=== PATIENT | female | born 1945 | race Caucasian/White ===

== ENCOUNTER 2017-03-10 08:52 | Inpatient (IN) ==
--- NOTE | 2017-03-09 11:31 | Discharge Summary ---
<Alma De Leon E - Last Filed: 03/09/17 11:29> Date of Encounter: 03/09/17 - Discharge Diagnosis (1) Rotator cuff arthropathy Status: Acute Qualifiers: Laterality: left Qualified Code(s): M12.812 - Other specific arthropathies , not elsewhere classified, left shoulder (2) COPD (chronic obstructive pulmonary disease) Priority: Secondary Status: Acute Qualifiers: COPD type: unspecified COPD Qualified Code(s): J44.9 - Chronic obstructive pulmonary disease, unspecified (3) Peritoneal dialysis status Priority: Secondary Status: Acute (4) Diabetes mellitus type 2, insulin dependent Priority: Secondary Status: Acute (5) Hypertension Priority: Secondary Status: Acute Qualifiers: Hypertension type: essential hypertension Qualified Code(s): I10 - Essential (primary) hypertension (6) Hyperlipidemia Priority: Secondary Status: Acute Qualifiers: Hyperlipidemia type: unspecified Qualified Code(s): E78.5 - Hyperlipidemia , unspecified (7) Hypothyroidism Priority: Secondary Status: Acute Qualifiers: Hypothyroidism type: unspecified Qualified Code(s): E03.9 - Hypothyroidism , unspecified (8) Obesity, Class III, BMI 40-49.9 (morbid obesity) Priority: Secondary Status: Acute (9) GERD (gastroesophageal reflux disease) Priority: Secondary Status: Acute Qualifiers: Esophagitis presence: esophagitis presence not specified Qualified Code(s) : K21.9 - Gastro-esophageal reflux disease without esophagitis - Discharge Medications Home Medications: B Complex W-C No.20/Folic Acid [Nephrocaps Softgel] 1 mg PO DAILY 08/30/15 [ History] Bumetanide [Bumex] 2 mg PO DAILY 08/30/15 [History] Calcium Acetate [Phos-LO] 667 mg PO DAILY 08/30/15 [History] Ferrous Sulfate 325 mg PO DAILY 08/30/15 [History] Gabapentin [Neurontin] 300 mg PO BID 08/30/15 [History] Insulin ASPART [NovoLOG] 30 unit SQ TIDWM 08/30/15 [History] Isosorbide MONOnitrate (24 HR) [Imdur] 60 mg PO DAILY 08/30/15 [History] Levothyroxine [Synthroid] 50 mcg PO DAILY 08/30/15 [History] Montelukast [Singulair] 10 mg PO DAILY 08/30/15 [History] Nitroglycerin 0.4 mg SL Q5MIN PRN 08/30/15 [History] OxyCODONE Immed Rel [Roxicodone 5 MG] 5 - 10 mg PO Q6HR PRN #40 tablet 03/09/17 [Rx] Albuterol Neb [Proventil Neb] 2.5 mg IH Q4HR PRN 03/10/17 [History] Amlodipine [Norvasc] 5 mg PO DAILY 03/10/17 [History] Calcitriol [Rocaltrol] 0.25 mcg PO DAILY 03/10/17 [History] Carvedilol [Coreg] 25 mg PO BID 03/10/17 [History] Cholecalciferol (Vitamin D3) [Vitamin D] 50,000 unit PO OLIVEIRA 03/10/17 [History] Hydralazine HCl 50 mg PO TID 03/10/17 [History] Insulin DETEMIR [Levemir] 50 unit SQ HS 03/10/17 [History] Irbesartan [Avapro] 300 mg PO DAILY 03/10/17 [History] Lansoprazole [Prevacid] 30 mg PO DAILY 03/10/17 [History] Metolazone [Zaroxolyn] 2.5 mg PO DAILY 03/10/17 [History] OxyCODONE/APAP 5/325 [Percocet 5/325] 1 each PO Q6HR PRN 03/10/17 [History] Simvastatin [Zocor] 20 mg PO HS 03/10/17 [History] Tizanidine HCl 2 mg PO BID PRN 03/10/17 [History] Tramadol HCl [Ultram] 50 mg PO Q6H PRN 03/10/17 [History] Allergies/Adverse Reactions: Allergies acetaminophen [From Darvocet-N] Adverse Reaction (Verified 03/10/17 09:54) Nausea adhesive tape Adverse Reaction (Verified 03/10/17 09:54) Rash aspirin Adverse Reaction (Verified 03/10/17 09:54) Nausea meperidine [From Demerol] Adverse Reaction (Verified 03/10/17 09:54) Dizziness propoxyphene [From Darvocet-N] Adverse Reaction (Verified 03/10/17 09:54) Nausea Sulfa (Sulfonamide Antibiotics) Adverse Reaction (Verified 03/10/17 09:54) Denises Primary care physician: Jennifer Wynn CNP - Patient Status Disposition: Home, Self-Care Condition: Good - Discharge Instructions Follow Up With: Jennifer Wynn CNP [Primary Care Provider] - (Web requested 03-11-17) - Hospital Course Hospital course: Ms. Bardales is a 72 year old female - Time Spent with Patient Total time spent providing and/or coordinating discharge services: <Garret Caro - Last Filed: 03/11/17 08:51> Date of Encounter: 03/11/17 Time of Encounter: 08:50 - Discharge Diagnosis (1) Rotator cuff arthropathy Priority: Primary Status: Acute Qualifiers: Laterality: left Qualified Code(s): M12.812 - Other specific arthropathies , not elsewhere classified, left shoulder (2) COPD (chronic obstructive pulmonary disease) Priority: Secondary Status: Chronic Qualifiers: COPD type: unspecified COPD Qualified Code(s): J44.9 - Chronic obstructive pulmonary disease, unspecified (3) Peritoneal dialysis status Priority: Secondary Status: Chronic (4) Diabetes mellitus type 2, insulin dependent Priority: Secondary Status: Chronic (5) Hypertension Priority: Secondary Status: Chronic Qualifiers: Hypertension type: essential hypertension Qualified Code(s): I10 - Essential (primary) hypertension (6) Hyperlipidemia Priority: Secondary Status: Chronic Qualifiers: Hyperlipidemia type: unspecified Qualified Code(s): E78.5 - Hyperlipidemia , unspecified (7) Hypothyroidism Priority: Secondary Status: Chronic Qualifiers: Hypothyroidism type: unspecified Qualified Code(s): E03.9 - Hypothyroidism , unspecified (8) Obesity, Class III, BMI 40-49.9 (morbid obesity) Priority: Secondary Status: Chronic (9) GERD (gastroesophageal reflux disease) Priority: Secondary Status: Chronic Qualifiers: Esophagitis presence: esophagitis presence not specified Qualified Code(s) : K21.9 - Gastro-esophageal reflux disease without esophagitis Primary care physician: Jennifer Wynn CNP - Patient Status Overall status at discharge: patient is progressing back to baseline - Hospital Course Hospital course: Ms. Bardales is a 72 year old female The patient had an uneventful postoperative course. They received antibiotics and physical therapy and were discharged in stable condition. There will follow -up in the office in 2 weeks. , Patient received dialysis prior following her surgery. - Time Spent with Patient Total time spent providing and/or coordinating discharge services:
--- NOTE | 2017-03-10 08:55 | History & Physical Report ---
Date of Encounter: 03/10/17 Time of Encounter: 08:55 24 Hour HP Update - Instructions Instructions: If the History and Physical is less than 30 days old and was completed prior to A.M. admission and or procedure and has NOT been updated on calendar day of procedure please complete this update prior to performing procedure. - Update Patient reports changes in Medical Condition: No Changes in examination, assessment, or condition: No Changes in Medication: No Preop tests/diagnostics Reviewed: Yes Surgery Remains Indicated: Yes Consent for Planned Operative Procedure(s) Verified: Yes - Pre-Operative Checklist Preoperative Checklist Indicated: No Prophylactic Antibiotic Ordered: Yes Is VTE Prophylaxis Indicated?: Yes
[2017-03-10] MEDS ORDERED: ROPIVACAINE HCL/PF 0.5% 30 ML VIAL ONE (09:05)
[2017-03-10] MEDS ORDERED: Bupivacaine/Clonidine Syringe 1 EACH SYRINGE ONE (09:06)
[2017-03-10] MEDS ORDERED: *HR* Propofol 200 MG/20 ML VIAL IVP ONE ×2 (09:27→10:26)
[2017-03-10] MEDS ORDERED: *HR* FentaNYL (PF) 100 MCG/2 ML VIAL ONE ×2 (09:27→11:15)
[2017-03-10] MEDS ORDERED: *HR* Midazolam HCl 2 MG/2 ML VIAL ONE (09:27)
[2017-03-10] MEDS ORDERED: Lidocaine -MPF 2% 2 ML VIAL ONE (09:28)
[2017-03-10] MEDS ORDERED: *HR* Succinylcholine 200 MG/10 ML VIAL IVP ONE (09:29)
--- NOTE | 2017-03-10 09:34 | Anesthesia Evaluation PreOp ---
Date of Encounter: 03/10/17 Time of Encounter: 09:32 - Past History Planned Operation: Left Total Shoulder Replacement Cardiac History: AR, CHF, HTN, Hyperlipidemia Pulmonary History: Former smoker (quit 52 years ago, smoked for 5 years), COPD ( O2 qhs), MORGAN Dx COUNTY AGENT History: Denies Any Significant HX Other Medical History: Renal (CKD stage 4, peritoneal dialysis qhs), Diabetes Type II, Thyroid, GERD, Other (H/O breast CA S/P bilateral mastectomy S/P chemo) Anesthesia History: No Prior Anesthetic Complications, Past Anesthesia (HUBERT) Alcohol Use: none Drug use: none Medications and Allergies B Complex W-C No.20/Folic Acid [Nephrocaps Softgel] 1 mg PO DAILY 08/30/15 [ History] Bumetanide [Bumex] 2 mg PO BID 08/30/15 [History] Calcium Acetate [Phos-LO] 1,334 mg PO TID 08/30/15 [History] Carvedilol 3.125 mg PO HS 08/30/15 [History] Carvedilol [Coreg] 3.125 mg PO BID 08/30/15 [History] Cholecalciferol (Vitamin D3) [Vitamin D] 5,000 unit PO DAILY 08/30/15 [History] Docusate [Colace] 100 mg PO BID 08/30/15 [History] Ferrous Sulfate 325 mg PO TIDWM 08/30/15 [History] Gabapentin [Neurontin] 300 mg PO BID 08/30/15 [History] Insulin ASPART [NovoLOG] 0 unit SQ TIDWM 08/30/15 [History] Insulin Glargine,Hum.rec.anlog [Lantus Solostar] 18 unit SQ HS 08/30/15 [History ] Ipratropium/Albuterol Neb [Duoneb] 3 ml IH Q4HR PRN 08/30/15 [History] Isosorbide MONOnitrate (24 HR) [Imdur] 30 mg PO DAILY 08/30/15 [History] Levothyroxine [Synthroid] 50 mcg PO DAILY 08/30/15 [History] Loratadine [Claritin] 10 mg PO DAILY 08/30/15 [History] Metolazone [Zaroxolyn] 5 mg PO DAILY 08/30/15 [History] Montelukast [Singulair] 10 mg PO DAILY 08/30/15 [History] Nitroglycerin 0.4 mg SL Q5MIN PRN 08/30/15 [History] OxyCODONE/APAP 5/325 [Percocet 5/325] 1 each PO Q6HR PRN 08/30/15 [History] OxyCODONE/APAP 5/325 [Percocet 5/325] 1 each PO Q6HR PRN #30 tablet 08/30/15 [Rx ] Pantoprazole Sodium [Protonix] 40 mg PO DAILY 08/30/15 [History] Polyethylene Glycol 3350 [MiraLAX] 17 gm PO DAILY 08/30/15 [History] Potassium Chloride 20 meq PO DAILY 08/30/15 [History] Pro-Stat 30 ml PO BID 08/30/15 [History] Simvastatin [Zocor] 10 mg PO HS 08/30/15 [History] Sorbitol Soln [Sorbitol] 30 ml PO Q3D 08/30/15 [History] OxyCODONE Immed Rel [Roxicodone 5 MG] 5 - 10 mg PO Q6HR PRN #40 tablet 03/09/17 [Rx] Allergies acetaminophen [From Darvocet-N] Adverse Reaction (Verified 03/10/17 09:54) Nausea adhesive tape Adverse Reaction (Verified 03/10/17 09:54) Rash aspirin Adverse Reaction (Verified 03/10/17 09:54) Nausea meperidine [From Demerol] Adverse Reaction (Verified 03/10/17 09:54) Dizziness propoxyphene [From Darvocet-N] Adverse Reaction (Verified 03/10/17 09:54) Nausea Sulfa (Sulfonamide Antibiotics) Adverse Reaction (Verified 03/10/17 09:54) Hives - Meds/Allergy Pre-op Review Medications Reviewed: Yes Allergies Reviewed: Yes Beta Blockers on Current Med List: Yes If Beta Blockers taken, Date/Time (Last Dose taken): 03/09/2017 at 2200 Anesthesia Results - Labs Laboratory Tests 03/02/17 03/02/17 03/02/17 15:09 15:09 15:09 WBC 6.4 Hgb 12.3 Hct 40.8 Plt Count 127 L PT 11.1 INR 1.0 APTT 28.6 Sodium 140 Potassium BUN 20 Creatinine 3.08 H 03/02/17 15:09 WBC Hgb Hct Plt Count PT INR APTT Sodium Potassium 4.1 BUN Creatinine - Imaging EKG: report reviewed (03/02/2017 SR, old anterior infarct, inferior infarct) Anesthesia Exam O2 Sat Height 1.5 m Height 1.5 m Weight 97.976 kg Weight 97.976 kg O2 Sat by Pulse Oximetry 97 Vital Signs Temp Pulse Resp BP Pulse Ox 97.5 F L 69 18 182/76 97 03/10/17 09:17 03/10/17 09:17 03/10/17 09:17 03/10/17 09:17 03/10/17 09:17 Height: 4'11'' Weight: 216 lbs NPO (# of Hours): 8 Pain Scale: 7 (left shoulder) Pain Scale Used: Numeric (1 - 10) - HEENT Pupil (Motor): EOMI, Other (complete blindness right eye) Mallampati: III Teeth: Normal Denture Type: Upper: Complete Oral Opening: Greater than 3 - COUNTY AGENT LOC: Oriented COUNTY AGENT Motor: Normal RUE, Normal LUE, Normal RLE, Normal LLE, Normal Face [employer] AGENT Sensory: Normal: RUE, RLE, LLE, Face, Deficit: LUE (numbness) - Cardiac Rhythm: Regular Murmur: None - Pulmonary Breath Sounds: bilateral Clear Respiratory Effort: Symmetrical Anesthesia Assess/Plan ASA Score: 4 Modified Bert Scale for Level of Consciousness: Cooperative, oriented, and tranquil Anesthetic Plan: General, Regional Monitoring Plan: Standard Monitors Recovery Plan: PACU
[2017-03-10] MEDS ORDERED: CeFAZolin Pre 2,000 MG/100 ML 2,000 MG/100 ML BAG IVPB ONE (09:40)
[2017-03-10] MEDS ORDERED: Albuterol 2.5 MG/3 ML NEBULIZER IH ONE (09:40)
[2017-03-10] MEDS ORDERED: 0.9 % Sodium Chloride 1,000 ML IVC SCH (09:45)
[2017-03-10] MEDS ORDERED: Acetaminophen IV 1,000 MG/100 ML INFUS..BTL ONE (10:20)
[2017-03-10] MEDS ORDERED: EPHEDrine 50 MG/ML VIAL ONE (11:29)
--- NOTE | 2017-03-10 11:50 | Anesthesia Procedures ---
Date of Encounter: 03/10/17 Time of Encounter: 11:20 Procedures: Anesthesia - Central Line Placement Right IJ Consent obtained: verbal consent Time out performed: Yes Patient placed on monitor/pulse ox: Yes Supplemental Oxygen via Nasal Cannula (L/min): 8 (blow-by beneath drape) MD prep: mask, gown, gloves Central line prep: Chlorhexidine scrub Local Anesthetic Used: Lidocaine 1% Amount of Anesthetics Used (mls): 5 Ultrasound used for placement: Yes Technique: Seldinger Lumen Inserted: triple Size / Length: 7 Fr / 16 cm Post procedure: sutured in place, good blood return, all ports aspirated, flushed, capped, sterile dressing applied Patient tolerated procedure: well Complications: none Vitals: VSS througout and Monitored in OR via Anesthesia Machine. See Anesthesia Record. Anes Supervising Prov Stmt: PT tolerated procedure well. R-IJ placed in OR after pt (known difficult IV stick) lost IV access when transferred to OR table. NO immediate complications
[2017-03-10] MEDS ORDERED: Ondansetron 4 MG/2 ML VIAL ONE (11:51)
[2017-03-10] MEDS ORDERED: *HR* Labetalol 100 MG/20 ML MDV IVP PRN (11:57)
[2017-03-10] MEDS ORDERED: Ondansetron 4 MG/2 ML VIAL IVP ONE (11:57)
[2017-03-10] MEDS ORDERED: *HR* HYDROmorphone (PF) 1 MG/ML SYRINGE IVP PRN ×2 (11:57→13:09)
--- NOTE | 2017-03-10 12:02 | Orthopedic Operative Note ---
Date of procedure: 03/10/17 Pre-op diagnosis: Left shoulder cuff tear arthropathy Post-op diagnosis: same Procedure: Procedure: Left Total Shoulder Replacment Reverse, Estimated blood loss: 100 cc Hardware:Arthrex small glenoid baseplate, 2 4.5 screws. 1 6.5 screw, 36+4 glenosphere, 6 humeral stem, poly insert 3 6 metal Exam Under anesthesia: Full motion no instability Procedural Notes: Grade 3 arthritic changes humeral head glenoid socket, irreparable tear supraspinatus tendon. Operative procedure: The patient was brought to the operating room and placed on the operating room table. After general anesthesia was administered the operative shoulder was examined. Findings were noted. The patient was placed in the modified beachchair position. All pressure points were padded appropriately. And the head was stabilized in the neutral position. The operative extremity was prepped and draped in the sterile surgical fashion. The patient received IV antibiotics prior to skin incision. A standard deltopectoral approach was made to the operative shoulder. Incision was made to the skin and subcutaneous tissue,hemo stasis was obtained with Bovie cautery. Using careful blunt dissection the cephalic vein was identified and mobilized medially. The deltopectoral interval was developed and the clavipectoral fascia was incised. The subscap was released off the lesser tuberosity and tagged with #2 FiberWire suture. The humerus was dislocated patient noted to have irreparable tear supraspinatus tendon, and the humeral cut was made along the anatomic neck. Patient noted to have grade 3 changes humeral head glenoid socket. Anterior and posterior Bankart retractors were placed to expose the glenoid. The glenoid guide was seated and the centering hole was made. It was reamed with the appropriate reamer. The small baseplate was seated and secured with (2) 4.5 screws and one 6.5 screw. The baseplate was irrigated and dried and the 36+4 Glenosphere was seated and secured with the Pierce taper. The Pierce taper was tested and found to be secure the humerus was redislocated and prepared with the diaphyseal reamers, followed by a broaching process up to the appropriate size 6 in the patient's anatomic version. The metaphyseal reamer was then utilized. Trial reduction found the shoulder to be relocatable. Trial components were removed subscap was irreparable. The appropriate 6 stem was impacted in place in the patient's anatomic version. Trial reduction found the shoulder to be relocatable and stable with the appropriate 3 Jordyn 6 metal Trial component was removed and the real 3 Jordyn 6 metal was seated and secured the shoulder was reduced. The shoulder had excellent motion and excellent stability and no evidence of dislocation. The deep tissue was irrigated with pulse irrigation. The deltopectoral interval was closed with a running #1 PDS suture, subcutaneous tissue was irrigated and closed with 0 PDS suture, the skin was closed with Dermabond. The patient was placed in a sterile dressing, abduction brace and extubated. The patient was then transferred to the recovery room in stable condition. Anesthesia: RAMBO Surgeon: Garret Caro Continuous Still Operator: Alma De Leon Condition: stable Disposition: PACU
--- NOTE | 2017-03-10 12:49 | Anesthesia Evaluation Post Op ---
Date of Encounter: 03/10/17 Time of Encounter: 12:47 - Vital Signs Vital Signs: 149/68, HR 86, RR15, SpO2 99% - Lungs Lungs: Clear Ascult./Percussion - Airway Airway: Non-obstructed - Cardiovascular Regular Rate - Mental Status Mental Status: Alert & Oriented, Answers Appropriately - Pain Pain Scale: 0 Pain Scale used: Numeric (1 - 10) - Nausea Vomiting Nausea Vomiting: Not Present - Hydration Hydration: Ice chips, Has not voided - Discharge PostOp Status: Transfer Patient to floor
[2017-03-10 13:03] LABS: Hematocrit 38.4 % (35.3-44.9); Hemoglobin 11.4 g/dL (11.5-15.4)
[2017-03-10] MEDS ORDERED: Temazepam 15 MG CAPSULE PO PRN (13:09)
[2017-03-10] MEDS ORDERED: Ondansetron 4 MG/2 ML VIAL IVP PRN (13:09)
[2017-03-10] MEDS ORDERED: *HR* Dextrose 50 % in Water (Syg) 50 ML SYRINGE IVP PRN (13:09)
[2017-03-10] MEDS ORDERED: D5% in Water 1,000 ML IVC PRN (13:09)
[2017-03-10] MEDS ORDERED: MOM Conc 10 ML UD.LIQ PO PRN (13:09)
[2017-03-10] MEDS ORDERED: Sennosides 8.6 MG TABLET PO PRN (13:09)
[2017-03-10] MEDS ORDERED: Dextrose Gel 15 GM PO PRN ×2 (13:09)
[2017-03-10] MEDS ORDERED: Naloxone 0.4 MG/ML INJ IVP PRN (13:09)
[2017-03-10] MEDS ORDERED: tiZANidine 4 MG TABLET PO PRN (13:51)
[2017-03-10] MEDS ORDERED: Nitroglycerin 0.4 MG TAB.SUBL SL PRN (13:51)
[2017-03-10] MEDS ORDERED: Albuterol 2.5 MG/3 ML NEBULIZER IH PRN (13:51)
[2017-03-10] MEDS: Insulin LISPRO 300 UNITS/3 ML VIAL SQ SCH ×3 (16:03→23:18)
[2017-03-10] MEDS: Ringers Solution, Lactated 1,000 ML IVC SCH (16:17)
[2017-03-10] MEDS: hydrALAZINE 25 MG TABLET PO SCH ×2 (17:11→23:18)
[2017-03-10] MEDS: ceFAZolin 2,000 MG in D5% in Water 100 ML IVPB SCH ×2 (17:36→20:12)
[2017-03-10] MEDS: PERITON. DIALYSIS 13-DEX 2.5 % 2,000 ML PERITONEAL SCH ×2 (19:39→23:34)
--- NOTE | 2017-03-10 20:57 | Event Note ---
Date of Encounter: 03/10/17 Time of Encounter: 20:21 called to see pt who was not responding, she had just received dilaudid at around 6pm. She was not moving her right extremity and was not responding to touch. Upon my exam pt was more awake and was able to follow some commands, she responded to pain, was able to move her limbs to commands and had no facial asymmetry when asked to smile. Etiology of her earlier minimal responsiveness is multifactorial; COPD/opioids/MORGAN/Obesity hypoventilation syndrome. We will increase the frequency of her dilaudid, do neuro checks and closely monitor, we will hold off on using narcan.
[2017-03-10] MEDS ORDERED: Insulin DETEMIR 100 UNIT/ML X5UNITS SQ SCH (21:00)
[2017-03-10] MEDS: Gabapentin 300 MG CAPSULE PO SCH (23:18)
[2017-03-11 04:43] LABS: Hematocrit 37.1 % (35.3-44.9); Hemoglobin 11.1 g/dL (11.5-15.4)
[2017-03-11] MEDS: *HR* Enoxaparin 30 MG/0.3 ML SYRINGE SQ SCH (05:36)
[2017-03-11] MEDS: PERITON. DIALYSIS 13-DEX 2.5 % 2,000 ML PERITONEAL SCH ×3 (05:36→18:11)
[2017-03-11] MEDS: Ringers Solution, Lactated 1,000 ML IVC SCH ×3 (08:21→21:07)
[2017-03-11] MEDS: Isosorbide MONOnitrate (24 HR) 30 MG TAB.ER.24H PO SCH (08:25)
[2017-03-11] MEDS: Bumetanide 1 MG TABLET PO SCH (08:25)
[2017-03-11] MEDS: hydrALAZINE 25 MG TABLET PO SCH ×3 (08:26→20:52)
[2017-03-11] MEDS: metOLazone 2.5 MG TABLET PO SCH (08:26)
[2017-03-11] MEDS: *HR* OxyCODONE Immed Rel 5 MG TABLET PO PRN (08:26)
[2017-03-11] MEDS: Renal Vitamin 1 MG CAPSULE PO SCH (08:26)
[2017-03-11] MEDS: Insulin LISPRO 300 UNITS/3 ML VIAL SQ SCH ×4 (08:27→20:53)
[2017-03-11] MEDS: Calcium Acetate 667 MG CAPSULE PO SCH (08:27)
[2017-03-11] MEDS: Gabapentin 300 MG CAPSULE PO SCH ×2 (08:27→20:52)
--- NOTE | 2017-03-11 08:29 | Orthopedics Progress Note ---
Date of Encounter: 03/11/17 Time of Encounter: 08:00 - Assessment and Plan (1) Rotator cuff arthropathy Current Visit: Yes Status: Acute Qualifiers: Laterality: left Qualified Code(s): M12.812 - Other specific arthropathies , not elsewhere classified, left shoulder (2) COPD (chronic obstructive pulmonary disease) Current Visit: Yes Status: Chronic Qualifiers: COPD type: unspecified COPD Qualified Code(s): J44.9 - Chronic obstructive pulmonary disease, unspecified (3) Peritoneal dialysis status Current Visit: Yes Status: Chronic (4) Diabetes mellitus type 2, insulin dependent Current Visit: Yes Status: Chronic (5) Hypertension Current Visit: Yes Status: Chronic Qualifiers: Hypertension type: essential hypertension Qualified Code(s): I10 - Essential (primary) hypertension (6) Hyperlipidemia Current Visit: Yes Status: Chronic Qualifiers: Hyperlipidemia type: unspecified Qualified Code(s): E78.5 - Hyperlipidemia , unspecified (7) Hypothyroidism Current Visit: Yes Status: Chronic Qualifiers: Hypothyroidism type: unspecified Qualified Code(s): E03.9 - Hypothyroidism , unspecified (8) Obesity, Class III, BMI 40-49.9 (morbid obesity) Current Visit: Yes Status: Chronic (9) GERD (gastroesophageal reflux disease) Current Visit: Yes Status: Chronic Qualifiers: Esophagitis presence: esophagitis presence not specified Qualified Code(s) : K21.9 - Gastro-esophageal reflux disease without esophagitis Subjective Principal diagnosis: Status post left total shoulder reverse replacement Interval history: Patient is post-op day #1 from left total shoulder reverse replacement. Patient is in good spirits this morning, complaining only of pain. Denies any weakness, nausea, chest pain, or difficulty breathing. Patient admits to ambulating since surgery with assistance. Patient's nurse states that last night at approximately 3am Ms. Bardales became difficult to arouse and had inability to move her right side. Nurse states that she called Dr. Sanford (hospitalist) for concern of stroke. Dr. Sanford did not feel this was the case and decreased her Dilaudid administration from Q2 hours to Q4 hours as needed. Patient received two peritoneal dialysis cycles last night and has not yet received her third cycle as of this time. Patient resting comfortably in bed. Easily aroused and converses freely. Opsite bandage intact overlying incision site. Patient able to move limbs appropriately bilaterally. Neurovascularly intact to bilateral upper and lower extremities. Patient has non-pitting lower extremity edema to bilateral shins, stable. Opsite bandage to be left in place. Continue pain management - transitioning to PO pain medication. Continue CryoCuff use. Patient appears appropriate for discharge today. Will see patient at one week follow up in office. Objective Vital signs: Vital Signs Temp Pulse Resp BP Pulse Ox 03/11/17 07:58 97.7 F 84 16 127/67 93 03/11/17 04:30 97.9 F 70 14 109/57 94 03/11/17 01:16 97.7 F 76 14 111/69 95 03/10/17 20:13 97.5 F L 72 12 103/62 95 03/10/17 16:09 97.6 F 86 16 134/73 96 03/10/17 15:19 95.5 F L 81 16 131/68 96 03/10/17 14:00 77 14 148/73 94 03/10/17 13:40 83 16 144/72 97 03/10/17 13:23 86 14 166/73 96 03/10/17 13:03 97.3 F L 85 15 154/76 98 03/10/17 12:53 97.3 F L 87 14 153/69 98 03/10/17 12:43 85 13 149/68 97 03/10/17 12:33 81 14 146/67 97 03/10/17 12:23 97.1 F L 72 16 127/67 98 03/10/17 09:57 97.5 F L 69 18 182/76 97 03/10/17 09:17 97.5 F L 69 18 182/76 97 Intake and Output 03/10/17 03/11/17 03/11/17 23:59 07:59 15:59 Intake Total 220 / 220 Output Total 0 / 0 Balance 220 / 220 0 / 0 Intake: IV Fluids 100 / 100 Ancef 2,000 MG In 100 / 100 Dextrose 5% 100 ML @ 200 mls/hr IVPB Q8HR [facility] Rx#: [id number] Oral 120 / 120 Output: Urine 0 / 0 Other: Total Peritoneal Dialysis 0 Output Weight 100.6 kg Blood Glucose* 154 195 Patient Weight 03/11/17 23:59 Weight 100.6 kg Incision: clean and dry - Diagnostic Results Shoulder x-ray: report reviewed - Labs CBC & BMP: 03/11/17 04:10 Labs: Abnormal lab results Hgb 11.1 g/dL (11.5-15.4) L 03/11/17 04:10 POC Glucose 195 (58-89) H 03/11/17 07:18 - VTE Documentation of Mechanical Device: Intermittent pneumatic compression device Consult Discharge Plan - Plan Referrals: Jennifer Wynn, RATING SPECIALIST [Primary Care Provider] - (Web requested 03-11-17)
[2017-03-11] MEDS: amLODIPine 5 MG TABLET PO SCH (08:44)
--- NOTE | 2017-03-11 09:16 | Nephrology Consult Note ---
Date of Encounter: 03/11/17 Time of Encounter: 08:20 Assessment and Plan (1) Peritoneal dialysis status Current Visit: Yes Status: Chronic S/P Left Total Shoulder Replacment Reverse. ESRD on home PD using cycler at night. Will do PD exchanges while in hospital, orders given. History of Present Illness - Reason for Consult end stage renal disease - History of Present Illness Ms. Bardales is a 72 year old female, well known to practice. ESRD on home PD using cycler. Other PMH-HTN, HLD, DM, COPD. Ms. Bardales is S/P left total shoulder replacement reverse on 03/10/2017. We were consulted to manage her PD. Past Med Surg Social Fam HX - Past Medical History Medical history: cancer, CHF, COPD, coronary artery disease, diabetes, hepatitis , hyperlipidemia, hypertension, renal disease Psychiatric history: no psych history - Past Surgical History Surgical History: breast surgery, cancer surgery, cataract, cholecystectomy, hysterectomy, knee replacement - Social History Smoking Status: Former smoker Smokeless Tobacco Status: No Alcohol use: none Drug use: none Medications and Allergies B Complex W-C No.20/Folic Acid [Nephrocaps Softgel] 1 mg PO DAILY 08/30/15 [ History] Bumetanide [Bumex] 2 mg PO DAILY 08/30/15 [History] Calcium Acetate [Phos-LO] 667 mg PO DAILY 08/30/15 [History] Ferrous Sulfate 325 mg PO DAILY 08/30/15 [History] Gabapentin [Neurontin] 300 mg PO BID 08/30/15 [History] Insulin ASPART [NovoLOG] 30 unit SQ TIDWM 08/30/15 [History] Isosorbide MONOnitrate (24 HR) [Imdur] 60 mg PO DAILY 08/30/15 [History] Levothyroxine [Synthroid] 50 mcg PO DAILY 08/30/15 [History] Montelukast [Singulair] 10 mg PO DAILY 08/30/15 [History] Nitroglycerin 0.4 mg SL Q5MIN PRN 08/30/15 [History] OxyCODONE Immed Rel [Roxicodone 5 MG] 5 - 10 mg PO Q6HR PRN #40 tablet 03/09/17 [Rx] Albuterol Neb [Proventil Neb] 2.5 mg IH Q4HR PRN 03/10/17 [History] Amlodipine [Norvasc] 5 mg PO DAILY 03/10/17 [History] Calcitriol [Rocaltrol] 0.25 mcg PO DAILY 03/10/17 [History] Carvedilol [Coreg] 25 mg PO BID 03/10/17 [History] Cholecalciferol (Vitamin D3) [Vitamin D] 50,000 unit PO OLIVEIRA 03/10/17 [History] Hydralazine HCl 50 mg PO TID 03/10/17 [History] Insulin DETEMIR [Levemir] 50 unit SQ HS 03/10/17 [History] Irbesartan [Avapro] 300 mg PO DAILY 03/10/17 [History] Lansoprazole [Prevacid] 30 mg PO DAILY 03/10/17 [History] Metolazone [Zaroxolyn] 2.5 mg PO DAILY 03/10/17 [History] OxyCODONE/APAP 5/325 [Percocet 5/325] 1 each PO Q6HR PRN 03/10/17 [History] Simvastatin [Zocor] 20 mg PO HS 03/10/17 [History] Tizanidine HCl 2 mg PO BID PRN 03/10/17 [History] Tramadol HCl [Ultram] 50 mg PO Q6H PRN 03/10/17 [History] Allergies acetaminophen [From Darvocet-N] Adverse Reaction (Verified 03/10/17 09:54) Nausea adhesive tape Adverse Reaction (Verified 03/10/17 09:54) Rash aspirin Adverse Reaction (Verified 03/10/17 09:54) Nausea meperidine [From Demerol] Adverse Reaction (Verified 03/10/17 09:54) Dizziness propoxyphene [From Darvocet-N] Adverse Reaction (Verified 03/10/17 09:54) Nausea Sulfa (Sulfonamide Antibiotics) Adverse Reaction (Verified 03/10/17 09:54) Hives Review of Systems All Systems: reviewed and no additional remarkable complaints except as stated Exam - Vital Signs Vital signs: Initial Vital Signs Temp Pulse Resp BP Pulse Ox 97.5 F L 69 18 182/76 97 03/10/17 09:17 03/10/17 09:17 03/10/17 09:17 03/10/17 09:17 03/10/17 09:17 Vital Signs - Last 8 Hours Temp Pulse Resp BP Pulse Ox 03/11/17 07:58 97.7 F 84 16 127/67 93 03/11/17 04:30 97.9 F 70 14 109/57 94 03/11/17 01:16 97.7 F 76 14 111/69 95 Intake and Output 03/10/17 03/11/17 03/11/17 23:59 07:59 15:59 Intake Total 220 / 220 1000 / 1000 Output Total 0 / 0 Balance 220 / 220 1000 / 1000 Intake: IV Fluids 100 / 100 1000 / 1000 Lactated Ringers 1,000 ML 1000 / 1000 @ 75 mls/hr IVC .[id number] [facility] Rx#:[id number] Ancef 2,000 MG In 100 / 100 Dextrose 5% 100 ML @ 200 mls/hr IVPB Q8HR [facility] Rx#: [id number] Oral 120 / 120 Output: Urine 0 / 0 Other: Total Peritoneal Dialysis 0 Output Weight 100.6 kg Blood Glucose* 154 195 Patient Weight 03/11/17 23:59 Weight 100.6 kg - General Appearance General appearance: well-developed, well-nourished, appears started age, obese EENT: mucous membranes moist Neck: no JVD Respiratory: clear Cardiology: regular rate, regular rhythm Additional Comments: mild LE edema Gastrointestinal: normoactive bowel sounds, no tenderness Integumentary: warm and dry Neurologic: alert and oriented x3 Psychiatric: mood/affect appropriate, cooperative Results - Lab Results 03/11/17 04:10 Consult Discharge Plan - Plan Referrals: Jennifer Wynn, CATHOLIC PRIEST [Primary Care Provider] - (Web requested 03-11-17)
[2017-03-11] MEDS: *HR* HYDROmorphone (PF) 1 MG/ML SYRINGE IVP SCH (21:15)
[2017-03-11] MEDS: Insulin DETEMIR 100 UNIT/ML X5UNITS SQ SCH (21:15)
[2017-03-12] MEDS: PERITON. DIALYSIS 13-DEX 2.5 % 2,000 ML PERITONEAL SCH ×4 (00:21→17:18)
[2017-03-12] MEDS: *HR* HYDROmorphone (PF) 1 MG/ML SYRINGE IVP SCH ×2 (01:50→06:16)
[2017-03-12 06:13] LABS: Hematocrit 36.9 % (35.3-44.9); Hemoglobin 10.8 g/dL (11.5-15.4)
[2017-03-12] MEDS: *HR* Enoxaparin 30 MG/0.3 ML SYRINGE SQ SCH (06:15)
[2017-03-12] MEDS ORDERED: *HR* HYDROmorphone (PF) 1 MG/ML SYRINGE IVP PRN (08:27)
[2017-03-12] MEDS: Bumetanide 1 MG TABLET PO SCH ×2 (08:31→09:29)
[2017-03-12] MEDS: Calcium Acetate 667 MG CAPSULE PO SCH ×2 (08:32→09:30)
[2017-03-12] MEDS: metOLazone 2.5 MG TABLET PO SCH ×2 (08:32→09:31)
[2017-03-12] MEDS: Renal Vitamin 1 MG CAPSULE PO SCH ×2 (08:32→09:30)
[2017-03-12] MEDS: Insulin LISPRO 300 UNITS/3 ML VIAL SQ SCH ×4 (08:33→21:29)
[2017-03-12] MEDS: Isosorbide MONOnitrate (24 HR) 30 MG TAB.ER.24H PO SCH ×2 (08:35→09:30)
[2017-03-12] MEDS: hydrALAZINE 25 MG TABLET PO SCH (08:35)
[2017-03-12] MEDS: Gabapentin 300 MG CAPSULE PO SCH ×3 (08:35→20:58)
[2017-03-12] MEDS: amLODIPine 5 MG TABLET PO SCH ×2 (08:35→09:30)
[2017-03-12 09:07] LABS: Calcium 8.9 mg/dL (8.6-10.8); Potassium 4.8 mEq/L (3.5-4.5)
--- NOTE | 2017-03-12 09:14 | Nephrology Progress Note ---
Date of Encounter: 03/12/17 Time of Encounter: 09:12 - Assessment and Plan (1) End stage renal disease Current Visit: Yes Status: Acute Patient is stable from a dialysis standpoint. We will continue with the current peritoneal dialysis regimen. We will discontinue the maintenance IV fluids. (2) Rotator cuff arthropathy Current Visit: Yes Status: Acute Qualifiers: Laterality: left Qualified Code(s): M12.812 - Other specific arthropathies , not elsewhere classified, left shoulder (3) Peritoneal dialysis status Current Visit: Yes Status: Chronic Subjective Principal diagnosis: Status post left total shoulder reverse replacement Interval history: Patient reports she is having some shoulder pain. Otherwise she appears to be doing well. She is being maintained on peritoneal dialysis. Vital signs are stable. Objective - Vital Signs Vital signs: Vital Signs Temp Pulse Resp BP Pulse Ox 03/12/17 08:26 98.2 F 77 18 116/61 95 03/11/17 23:33 98.0 F 83 16 111/63 92 03/11/17 19:44 97.7 F 78 16 106/52 91 03/11/17 15:53 98.0 F 68 16 109/58 94 03/11/17 13:09 98.4 F 101 95 144/75 91 03/11/17 12:06 97.9 F 78 16 116/61 93 Intake and Output 03/11/17 03/12/17 03/12/17 23:59 07:59 15:59 Intake Total 2600 / 2600 Balance 2600 / 2600 Intake: IV Fluids 2000 / 1999 Lactated Ringers 1,000 ML 2000 / 2000 @ 75 mls/hr IVC .[id number] COUNT INCLUDES THE [facility] Rx#:[id number] Oral 600 / 600 Other: Meal Dinner Total Peritoneal Dialysis -500 -700 Output Weight 104.7 kg 104.1 kg Blood Glucose* 218 93 Patient Weight 03/12/17 23:59 Weight 104.1 kg - General Appearance Exam: Patient appears alert and oriented. Blood pressure 116/61. Heart regular rate and rhythm. Lungs symmetric breath sounds otherwise clear. Abdomen is distended but soft no tenderness. There is no lower extremity swelling. - Lab 03/12/17 05:05 03/12/17 08:17 Most recent lab results Calcium 8.9 mg/dL (8.6-10.8) 03/12/17 08:17 - VTE Documentation of Mechanical Device: Intermittent pneumatic compression device Consult Discharge Plan - Plan Referrals: Jennifer Wynn, ALBA [Primary Care Provider] - (Web requested 03-11-17)
--- NOTE | 2017-03-12 15:57 | Orthopedics Progress Note ---
Date of Encounter: 03/12/17 Time of Encounter: 03:00 - Assessment and Plan (1) Rotator cuff arthropathy Current Visit: Yes Status: Acute Qualifiers: Laterality: left Qualified Code(s): M12.812 - Other specific arthropathies , not elsewhere classified, left shoulder (2) COPD (chronic obstructive pulmonary disease) Current Visit: Yes Status: Chronic Qualifiers: COPD type: unspecified COPD Qualified Code(s): J44.9 - Chronic obstructive pulmonary disease, unspecified (3) Peritoneal dialysis status Current Visit: Yes Status: Chronic (4) Diabetes mellitus type 2, insulin dependent Current Visit: Yes Status: Chronic (5) Hypertension Current Visit: Yes Status: Chronic Qualifiers: Hypertension type: essential hypertension Qualified Code(s): I10 - Essential (primary) hypertension (6) Hyperlipidemia Current Visit: Yes Status: Chronic Qualifiers: Hyperlipidemia type: unspecified Qualified Code(s): E78.5 - Hyperlipidemia , unspecified (7) Hypothyroidism Current Visit: Yes Status: Chronic Qualifiers: Hypothyroidism type: unspecified Qualified Code(s): E03.9 - Hypothyroidism , unspecified (8) Obesity, Class III, BMI 40-49.9 (morbid obesity) Current Visit: Yes Status: Chronic (9) GERD (gastroesophageal reflux disease) Current Visit: Yes Status: Chronic Qualifiers: Esophagitis presence: esophagitis presence not specified Qualified Code(s) : K21.9 - Gastro-esophageal reflux disease without esophagitis Subjective Principal diagnosis: Status post left total shoulder reverse replacement Interval history: Patient is post-op day #2 from left total shoulder reverse replacement. Patient doing well now. This morning patient was somnolent and repeating herself. Denies any weakness, nausea, chest pain, or difficulty breathing. Patient's Dilaudid was changed to PRN use and patient's somnolence improved. Nurse informs this provider that patient must go to a care facility rather than home because she is unable to perform her peritoneal dialysis independently. Awaiting placement. Patient resting comfortably in bed. Patient now easily aroused and converses freely. Opsite bandage intact overlying incision site. Patient able to move limbs appropriately bilaterally. Neurovascularly intact to bilateral upper and lower extremities. Patient has non-pitting lower extremity edema to bilateral shins, stable. Opsite bandage to be left in place until in office follow up. Continue pain management - transition to PO pain medication. Continue CryoCuff use. Patient appears appropriate for discharge today - awaiting placement to facility. Will see patient at one week follow up in office. Objective Vital signs: Vital Signs Temp Pulse Resp BP Pulse Ox 03/12/17 11:27 98.1 F 72 20 146/68 94 03/12/17 08:26 98.2 F 77 18 116/61 95 03/11/17 23:33 98.0 F 83 16 111/63 92 03/11/17 19:44 97.7 F 78 16 106/52 91 Intake and Output 03/11/17 03/12/17 03/12/17 23:59 07:59 15:59 Intake Total 2600 / 2600 0 / 0 Output Total 0 / 0 Balance 2600 / 2600 0 / 0 Intake: IV Fluids 1999 / 1999 Lactated Ringers 1,000 ML 1999 / 1999 @ 75 mls/hr IVC .[id number] [facility] Rx#:[id number] Oral 600 / 600 0 / 0 Output: Urine 0 / 0 Other: Meal Dinner Total Peritoneal Dialysis -500 -700 -100 Output Weight 104.7 kg 104.1 kg 105.2 kg Blood Glucose* 218 108 Patient Weight 03/12/17 23:59 Weight 105.2 kg - Labs CBC & BMP: 03/12/17 05:05 03/12/17 08:17 Labs: Abnormal lab results Hgb 10.8 g/dL (11.5-15.4) L 03/12/17 05:05 Potassium 4.8 mEq/L (3.5-4.5) H 03/12/17 08:17 Carbon Dioxide 31 mEq/L (19-29) H 03/12/17 08:17 BUN 28 mg/dL (7-20) H 03/12/17 08:17 Creatinine 3.60 mg/dL (0.57-1.11) H 03/12/17 08:17 Est GFR ( Amer) 15 (> 60) L 03/12/17 08:17 Est GFR (Non-Af Amer) 12 (> 60) L 03/12/17 08:17 POC Glucose 108 (58-89) H 03/12/17 11:30 - VTE Documentation of Mechanical Device: Intermittent pneumatic compression device Consult Discharge Plan - Plan Referrals: Jennifer Wynn, HOME HEALTH CARE SOCIAL WORKER [Primary Care Provider] - (Web requested 03-11-17)
[2017-03-12] MEDS: Insulin DETEMIR 100 UNIT/ML X5UNITS SQ SCH (21:29)
[2017-03-13] MEDS: PERITON. DIALYSIS 13-DEX 2.5 % 2,000 ML PERITONEAL SCH ×4 (00:21→18:21)
[2017-03-13 05:27] LABS: Basophils % 0.1 %; Eosinophils # 0.1 K/mcL (0.0-0.6); Eosinophils % 0.7 %; Hemoglobin 11.7 g/dL (11.5-15.4); Immature Granulocytes % 0.6 % (0-4); Lymphocytes # 0.8 K/mcL (0.6-4.6); Lymphocytes % 10.2 %; Mean Corpuscular HGB Conc 30.8 g/dL (31.6-35.5); Mean Corpuscular Hemoglobin 26.8 pg (28.0-33.3); Mean Corpuscular Volume 87.2 fL (83.0-100.0); Mean Platelet Volume 12.7 fL (9.4-12.4); Monocytes # 0.6 K/mcL (0.0-1.3); Monocytes % 7.5 %; Neutrophils # 6.7 K/mcL (1.6-8.9); Platelet Count 129 K/mcL (140-400); Red Blood Count 4.36 M/mcL (3.82-4.97); Red Cell Distribution Width 13.5 % (11.5-14.5); Segmented Neutrophils % 80.9 %
[2017-03-13] MEDS: *HR* Enoxaparin 30 MG/0.3 ML SYRINGE SQ SCH (05:43)
[2017-03-13 05:45] LABS: Albumin 2.5 g/dL (3.5-5.0); Albumin/Globulin Ratio 0.6 (1.1-2.2); Alkaline Phosphatase 136 Units/L (38-126); Aspartate Amino Transferase 46 Units/L (5-34); BUN/Creatinine Ratio 9 (6-26); Bilirubin,Total 0.7 mg/dL (0.2-1.2); Blood Urea Nitrogen 31 mg/dL (7-20); Calcium 9.5 mg/dL (8.6-10.8); Carbon Dioxide 30 mEq/L (19-29); Chloride 98 mEq/L (98-109); Globulin 3.9 g/dL (2.4-3.5); Glucose 133 mg/dL (70-99); Osmolality,Calculated 288 (280-300); Phosphorous 3.4 mg/dL (2.3-4.7); Potassium 4.7 mEq/L (3.5-4.5); Sodium 135 mEq/L (136-145); Total Protein 6.4 g/dL (6.0-8.3); eGFR For African Americans 15 (> 60); eGFR For Non-African Americans 12 (> 60)
[2017-03-13 05:49] LABS: Alanine Aminotransferase < 6 Units/L (0-55)
--- NOTE | 2017-03-13 06:38 | Orthopedics Progress Note ---
Date of Encounter: 03/13/17 Time of Encounter: 06:38 - Assessment and Plan (1) Rotator cuff arthropathy Current Visit: Yes Status: Acute Qualifiers: Laterality: left Qualified Code(s): M12.812 - Other specific arthropathies , not elsewhere classified, left shoulder (2) COPD (chronic obstructive pulmonary disease) Current Visit: Yes Status: Chronic Qualifiers: COPD type: unspecified COPD Qualified Code(s): J44.9 - Chronic obstructive pulmonary disease, unspecified (3) Peritoneal dialysis status Current Visit: Yes Status: Chronic (4) Diabetes mellitus type 2, insulin dependent Current Visit: Yes Status: Chronic (5) Hypertension Current Visit: Yes Status: Chronic Qualifiers: Hypertension type: essential hypertension Qualified Code(s): I10 - Essential (primary) hypertension (6) Hyperlipidemia Current Visit: Yes Status: Chronic Qualifiers: Hyperlipidemia type: unspecified Qualified Code(s): E78.5 - Hyperlipidemia , unspecified (7) Hypothyroidism Current Visit: Yes Status: Chronic Qualifiers: Hypothyroidism type: unspecified Qualified Code(s): E03.9 - Hypothyroidism , unspecified (8) Obesity, Class III, BMI 40-49.9 (morbid obesity) Current Visit: Yes Status: Chronic (9) GERD (gastroesophageal reflux disease) Current Visit: Yes Status: Chronic Qualifiers: Esophagitis presence: esophagitis presence not specified Qualified Code(s) : K21.9 - Gastro-esophageal reflux disease without esophagitis Subjective Principal diagnosis: Status post left total shoulder reverse replacement Interval history: Patient was seen this morning doing well without complaints. Afebrile vital signs stable. Operative extremity: Neurovascularly intact Dressing clean dry and intact Calves nontender Assessment and plan: Continue with postoperative care Patient without complaints believes that she can go home discharge has been held due to placement issues patient should be discharged home today Objective Vital signs: Vital Signs Temp Pulse Resp BP Pulse Ox 03/13/17 03:47 97.8 F 74 18 158/85 97 03/12/17 23:10 98.2 F 90 18 156/52 99 03/12/17 21:08 98.9 F 102 18 129/74 92 03/12/17 20:58 99 03/12/17 16:04 98.7 F 90 16 141/97 95 03/12/17 11:27 98.1 F 72 20 146/68 94 03/12/17 08:26 98.2 F 77 18 116/61 95 Intake and Output 03/12/17 03/12/17 03/13/17 15:59 23:59 07:59 Intake Total 0 / 0 0 / 0 Output Total 0 / 0 200 / 200 Balance 0 / 0 0 / 0 -200 / -200 Intake: Oral 0 / 0 0 / 0 Output: Urine 0 / 0 200 / 200 Other: Total Peritoneal Dialysis -100 400 0 Output Stool Size Small Stool Consistency formed Stool Color Brown # Urine Diapers 1 1 Weight 105.2 kg 105.2 kg 112.8 kg Blood Glucose* 108 101 Patient Weight 03/13/17 23:59 Weight 112.8 kg - Labs CBC & BMP: 03/13/17 04:52 03/13/17 04:52 Labs: Abnormal lab results MCH 26.8 pg (28.0-33.3) L 03/13/17 04:52 MCHC 30.8 g/dL (31.6-35.5) L 03/13/17 04:52 Plt Count 129 K/mcL (140-400) L 03/13/17 04:52 MPV 12.7 fL (9.4-12.4) H 03/13/17 04:52 Sodium 135 mEq/L (136-145) L 03/13/17 04:52 Potassium 4.7 mEq/L (3.5-4.5) H 03/13/17 04:52 Carbon Dioxide 30 mEq/L (19-29) H 03/13/17 04:52 BUN 31 mg/dL (7-20) H 03/13/17 04:52 Creatinine 3.64 mg/dL (0.57-1.11) H 03/13/17 04:52 Est GFR ( Amer) 15 (> 60) L 03/13/17 04:52 Est GFR (Non-Af Amer) 12 (> 60) L 03/13/17 04:52 Glucose 133 mg/dL (70-99) H 03/13/17 04:52 POC Glucose 101 (58-89) H 03/12/17 21:14 AST 46 Units/L (5-34) H 03/13/17 04:52 Alkaline Phosphatase 136 Units/L (38-126) H 03/13/17 04:52 Albumin 2.5 g/dL (3.5-5.0) L 03/13/17 04:52 Globulin 3.9 g/dL (2.4-3.5) H 03/13/17 04:52 Albumin/Globulin Ratio 0.6 (1.1-2.2) L 03/13/17 04:52 - VTE Documentation of Mechanical Device: Intermittent pneumatic compression device Consult Discharge Plan - Plan Referrals: Jennifer Wynn, VAT PACKER [Primary Care Provider] - (Web requested 03-11-17)
[2017-03-13] MEDS: Insulin LISPRO 300 UNITS/3 ML VIAL SQ SCH ×4 (07:36→21:08)
[2017-03-13] MEDS: Renal Vitamin 1 MG CAPSULE PO SCH (09:27)
[2017-03-13] MEDS: Bumetanide 1 MG TABLET PO SCH (09:27)
[2017-03-13] MEDS: Gabapentin 300 MG CAPSULE PO SCH ×2 (09:27→21:38)
[2017-03-13] MEDS: amLODIPine 5 MG TABLET PO SCH (09:27)
[2017-03-13] MEDS: Calcium Acetate 667 MG CAPSULE PO SCH (09:27)
[2017-03-13] MEDS: Isosorbide MONOnitrate (24 HR) 30 MG TAB.ER.24H PO SCH (09:28)
[2017-03-13] MEDS: metOLazone 2.5 MG TABLET PO SCH (09:28)
--- NOTE | 2017-03-13 09:41 | Nephrology Progress Note ---
Date of Encounter: 03/13/17 Time of Encounter: 09:25 - Assessment and Plan (1) Peritoneal dialysis status Current Visit: Yes Status: Chronic S/P Left Total Shoulder Replacment Reverse. ESRD on home PD using cycler at night. Will do PD exchanges while in hospital, awaiting rehab nursing facility that provides PD. Subjective Principal diagnosis: Status post left total shoulder reverse replacement Interval history: Alert, states pain improving. Staff discussing rehab nursing facilities with patient that also does PD. Objective - Vital Signs Vital signs: Vital Signs Temp Pulse Resp BP Pulse Ox 03/13/17 07:10 98.2 F 94 18 137/84 96 03/13/17 03:47 97.8 F 74 18 158/85 97 03/12/17 23:10 98.2 F 90 18 156/52 99 03/12/17 21:08 98.9 F 102 18 129/74 92 03/12/17 20:58 99 03/12/17 16:04 98.7 F 90 16 141/97 95 03/12/17 11:27 98.1 F 72 20 146/68 94 Intake and Output 03/12/17 03/13/17 03/13/17 23:59 07:59 15:59 Intake Total 0 / 0 120 / 120 Output Total 200 / 200 Balance 0 / 0 -200 / -200 120 / 120 Intake: Oral 0 / 0 120 / 120 Output: Urine 200 / 200 Other: Meal Breakfast Percent of Meal Consumed 75% Total Peritoneal Dialysis 400 -400 Output Stool Size Small Stool Consistency formed Stool Color Brown # Urine Diapers 1 1 Weight 105.2 kg 104 kg Blood Glucose* 101 115 Patient Weight 03/13/17 23:59 Weight 104 kg - General Appearance General appearance: Present: well-developed, well-nourished, appears started age , obese EENT: Present: mucous membranes moist Respiratory: Present: clear Cardiology: Present: no edema, regular rate, regular rhythm Gastrointestinal: Present: normoactive bowel sounds, no tenderness Integumentary: Present: warm and dry Neurologic: Present: alert and oriented x3 Psychiatric: Present: mood/affect appropriate, cooperative - Lab 03/13/17 04:52 03/13/17 04:52 Most recent lab results Calcium 9.5 mg/dL (8.6-10.8) 03/13/17 04:52 Phosphorus 3.4 mg/dL (2.3-4.7) 03/13/17 04:52 - VTE Documentation of Mechanical Device: Intermittent pneumatic compression device Consult Discharge Plan - Plan Referrals: Jennifer Wynn CNP [Primary Care Provider] - (Web requested 03-11-17)
[2017-03-13] MEDS: Insulin DETEMIR 100 UNIT/ML X5UNITS SQ SCH (21:38)
[2017-03-13] MEDS: *HR* OxyCODONE Immed Rel 5 MG TABLET PO PRN (21:40)
[2017-03-14] MEDS: PERITON. DIALYSIS 13-DEX 2.5 % 2,000 ML PERITONEAL SCH ×4 (00:08→18:34)
[2017-03-14] MEDS: *HR* Enoxaparin 30 MG/0.3 ML SYRINGE SQ SCH (05:14)
--- NOTE | 2017-03-14 06:59 | Orthopedics Progress Note ---
Date of Encounter: 03/14/17 Time of Encounter: 06:58 - Assessment and Plan (1) Rotator cuff arthropathy Current Visit: Yes Status: Acute Qualifiers: Laterality: left Qualified Code(s): M12.812 - Other specific arthropathies , not elsewhere classified, left shoulder (2) COPD (chronic obstructive pulmonary disease) Current Visit: Yes Status: Chronic Qualifiers: COPD type: unspecified COPD Qualified Code(s): J44.9 - Chronic obstructive pulmonary disease, unspecified (3) Peritoneal dialysis status Current Visit: Yes Status: Chronic (4) Diabetes mellitus type 2, insulin dependent Current Visit: Yes Status: Chronic (5) Hypertension Current Visit: Yes Status: Chronic Qualifiers: Hypertension type: essential hypertension Qualified Code(s): I10 - Essential (primary) hypertension (6) Hyperlipidemia Current Visit: Yes Status: Chronic Qualifiers: Hyperlipidemia type: unspecified Qualified Code(s): E78.5 - Hyperlipidemia , unspecified (7) Hypothyroidism Current Visit: Yes Status: Chronic Qualifiers: Hypothyroidism type: unspecified Qualified Code(s): E03.9 - Hypothyroidism , unspecified (8) Obesity, Class III, BMI 40-49.9 (morbid obesity) Current Visit: Yes Status: Chronic (9) GERD (gastroesophageal reflux disease) Current Visit: Yes Status: Chronic Qualifiers: Esophagitis presence: esophagitis presence not specified Qualified Code(s) : K21.9 - Gastro-esophageal reflux disease without esophagitis Subjective Principal diagnosis: Status post left total shoulder reverse replacement Interval history: Patient was seen this morning doing well without complaints. Afebrile vital signs stable. Operative extremity: Neurovascularly intact Dressing clean dry and intact Calves nontender Assessment and plan: Continue with postoperative care D/C held secondary to placement Objective Vital signs: Vital Signs Temp Pulse Resp BP Pulse Ox 03/14/17 04:48 98.2 F 67 20 164/90 94 03/14/17 04:31 97.9 F 75 20 154/71 99 03/13/17 23:12 97.8 F 88 19 143/85 94 03/13/17 19:38 97.6 F 81 18 144/85 95 03/13/17 16:27 97.8 F 85 18 115/77 95 03/13/17 11:42 98.0 F 89 18 145/66 97 03/13/17 07:10 98.2 F 94 18 137/84 96 Intake and Output 03/13/17 03/13/17 03/14/17 15:59 23:59 07:59 Intake Total 120 / 120 200 / 200 Output Total 200 / 200 Balance 120 / 120 0 / 0 Intake: Oral 120 / 120 200 / 200 Output: Urine 200 / 200 Other: Meal Breakfast Dinner Percent of Meal Consumed 75% 0% Total Peritoneal Dialysis -821 -339 -540 Output Stool Size Small Moderate Stool Consistency formed formed Stool Characteristics Normal for Patient Stool Color Brown Brown # Voids 1 # Urine Diapers 1 # Bowel Movements 1 1 Weight 102 kg 101.8 kg 104 kg Blood Glucose* 166 106 Patient Weight 03/14/17 23:59 Weight 104 kg - Labs CBC & BMP: 03/13/17 04:52 03/13/17 04:52 Labs: Abnormal lab results MCH 26.8 pg (28.0-33.3) L 03/13/17 04:52 MCHC 30.8 g/dL (31.6-35.5) L 03/13/17 04:52 Plt Count 129 K/mcL (140-400) L 03/13/17 04:52 MPV 12.7 fL (9.4-12.4) H 03/13/17 04:52 Sodium 135 mEq/L (136-145) L 03/13/17 04:52 Potassium 4.7 mEq/L (3.5-4.5) H 03/13/17 04:52 Carbon Dioxide 30 mEq/L (19-29) H 03/13/17 04:52 BUN 31 mg/dL (7-20) H 03/13/17 04:52 Creatinine 3.64 mg/dL (0.57-1.11) H 03/13/17 04:52 Est GFR ( Amer) 15 (> 60) L 03/13/17 04:52 Est GFR (Non-Af Amer) 12 (> 60) L 03/13/17 04:52 Glucose 133 mg/dL (70-99) H 03/13/17 04:52 POC Glucose 106 (58-89) H 03/13/17 19:36 AST 46 Units/L (5-34) H 03/13/17 04:52 Alkaline Phosphatase 136 Units/L (38-126) H 03/13/17 04:52 Albumin 2.5 g/dL (3.5-5.0) L 03/13/17 04:52 Globulin 3.9 g/dL (2.4-3.5) H 03/13/17 04:52 Albumin/Globulin Ratio 0.6 (1.1-2.2) L 03/13/17 04:52 - VTE Documentation of Mechanical Device: Intermittent pneumatic compression device Consult Discharge Plan - Plan Referrals: Jennifer Wynn, INSTRUMENT OPERATOR [Primary Care Provider] - (Web requested 03-11-17)
[2017-03-14] MEDS: Insulin LISPRO 300 UNITS/3 ML VIAL SQ SCH ×4 (07:52→21:49)
--- NOTE | 2017-03-14 08:01 | Nephrology Progress Note ---
Date of Encounter: 03/14/17 Time of Encounter: 07:55 - Assessment and Plan (1) Peritoneal dialysis status Current Visit: Yes Status: Chronic S/P Left Total Shoulder Replacment Reverse. ESRD on home PD using cycler at night. Will do PD exchanges while in hospital, awaiting rehab nursing facility that provides PD. Subjective Principal diagnosis: Status post left total shoulder reverse replacement Interval history: Alert, states pain improving. Staff discussing rehab nursing facilities with patient that also does PD. Objective - Vital Signs Vital signs: Vital Signs Temp Pulse Resp BP Pulse Ox 03/14/17 07:27 69 18 164/81 96 03/14/17 04:48 98.2 F 67 20 164/90 94 03/14/17 04:31 97.9 F 75 20 154/71 99 03/13/17 23:12 97.8 F 88 19 143/85 94 03/13/17 19:38 97.6 F 81 18 144/85 95 03/13/17 16:27 97.8 F 85 18 115/77 95 03/13/17 11:42 98.0 F 89 18 145/66 97 Intake and Output 03/13/17 03/14/17 03/14/17 23:59 07:59 15:59 Intake Total 200 / 200 Output Total 200 / 200 Balance 0 / 0 Intake: Oral 200 / 200 Output: Urine 200 / 200 Other: Meal Dinner Percent of Meal Consumed 0% Total Peritoneal Dialysis -420 0 Output Stool Size Moderate Stool Consistency formed Stool Color Brown # Urine Diapers 1 # Bowel Movements 1 Weight 101.8 kg 101.6 kg Blood Glucose* 106 32 Patient Weight 03/14/17 23:59 Weight 101.6 kg - General Appearance General appearance: Present: well-developed, well-nourished, appears started age , obese EENT: Present: mucous membranes moist Neck: Present: no JVD Respiratory: Present: clear Cardiology: Present: no edema, regular rate, regular rhythm Gastrointestinal: Present: normoactive bowel sounds, no tenderness Integumentary: Present: warm and dry Psychiatric: Present: mood/affect appropriate, cooperative - Lab 03/13/17 04:52 03/13/17 04:52 Most recent lab results Calcium 9.5 mg/dL (8.6-10.8) 03/13/17 04:52 Phosphorus 3.4 mg/dL (2.3-4.7) 03/13/17 04:52 - VTE Documentation of Mechanical Device: Intermittent pneumatic compression device Consult Discharge Plan - Plan Referrals: Jennifer Wynn CNP [Primary Care Provider] - (Web requested 03-11-17)
[2017-03-14] MEDS: Bumetanide 1 MG TABLET PO SCH (09:30)
[2017-03-14] MEDS: Renal Vitamin 1 MG CAPSULE PO SCH (09:30)
[2017-03-14] MEDS: metOLazone 2.5 MG TABLET PO SCH (09:31)
[2017-03-14] MEDS: amLODIPine 5 MG TABLET PO SCH (09:31)
[2017-03-14] MEDS: Calcium Acetate 667 MG CAPSULE PO SCH (09:31)
[2017-03-14] MEDS: Isosorbide MONOnitrate (24 HR) 30 MG TAB.ER.24H PO SCH (09:31)
[2017-03-14] MEDS: Gabapentin 300 MG CAPSULE PO SCH ×2 (09:31→21:48)
[2017-03-15] MEDS: PERITON. DIALYSIS 13-DEX 2.5 % 2,000 ML PERITONEAL SCH ×4 (01:30→18:13)
[2017-03-15] MEDS: *HR* Enoxaparin 30 MG/0.3 ML SYRINGE SQ SCH (06:25)
[2017-03-15] MEDS: *HR* OxyCODONE Immed Rel 5 MG TABLET PO PRN ×3 (06:44→20:49)
[2017-03-15] MEDS: Insulin LISPRO 300 UNITS/3 ML VIAL SQ SCH ×4 (07:48→20:55)
--- NOTE | 2017-03-15 07:58 | Orthopedics Progress Note ---
Date of Encounter: 03/15/17 Time of Encounter: 07:58 - Assessment and Plan (1) Rotator cuff arthropathy Current Visit: Yes Status: Acute Qualifiers: Laterality: left Qualified Code(s): M12.812 - Other specific arthropathies , not elsewhere classified, left shoulder (2) COPD (chronic obstructive pulmonary disease) Current Visit: Yes Status: Chronic Qualifiers: COPD type: unspecified COPD Qualified Code(s): J44.9 - Chronic obstructive pulmonary disease, unspecified (3) Peritoneal dialysis status Current Visit: Yes Status: Chronic (4) Diabetes mellitus type 2, insulin dependent Current Visit: Yes Status: Chronic (5) Hypertension Current Visit: Yes Status: Chronic Qualifiers: Hypertension type: essential hypertension Qualified Code(s): I10 - Essential (primary) hypertension (6) Hyperlipidemia Current Visit: Yes Status: Chronic Qualifiers: Hyperlipidemia type: unspecified Qualified Code(s): E78.5 - Hyperlipidemia , unspecified (7) Hypothyroidism Current Visit: Yes Status: Chronic Qualifiers: Hypothyroidism type: unspecified Qualified Code(s): E03.9 - Hypothyroidism , unspecified (8) Obesity, Class III, BMI 40-49.9 (morbid obesity) Current Visit: Yes Status: Chronic (9) GERD (gastroesophageal reflux disease) Current Visit: Yes Status: Chronic Qualifiers: Esophagitis presence: esophagitis presence not specified Qualified Code(s) : K21.9 - Gastro-esophageal reflux disease without esophagitis Subjective Principal diagnosis: Status post left total shoulder reverse replacement Interval history: Patient was seen this morning doing well without complaints. Afebrile vital signs stable. Operative extremity: Neurovascularly intact Dressing clean dry and intact Calves nontender Assessment and plan: Continue with postoperative care D/C held secondary to placement discharged today Objective Vital signs: Vital Signs Temp Pulse Resp BP Pulse Ox 03/15/17 07:19 98.2 F 87 17 113/66 98 03/15/17 04:06 98.7 F 76 18 115/67 98 03/15/17 04:00 98.5 F 03/15/17 00:03 98.2 F 84 18 102/58 94 03/14/17 21:45 98 03/14/17 18:50 97.9 F 84 18 117/66 98 03/14/17 16:10 97.3 F L 57 14 107/61 99 03/14/17 15:19 95.8 F L 03/14/17 14:11 95.2 F L 03/14/17 14:00 94.9 F L 03/14/17 11:15 52 16 116/68 100 Intake and Output 03/14/17 03/14/17 03/15/17 15:59 23:59 07:59 Intake Total 270 / 270 150 / 150 0 / 0 Output Total 0 / 0 0 / 0 Balance 270 / 270 150 / 150 0 / 0 Intake: Oral 270 / 270 150 / 150 0 / 0 Output: Urine 0 / 0 0 / 0 Other: Meal Breakfast Dinner Percent of Meal Consumed 0% 20% Total Peritoneal Dialysis -120 -60 100 Output # Voids 1 # Urine Diapers 1 1 1 Weight 101 kg 103 kg 102.6 kg Blood Glucose* 61 233 113 Patient Weight 03/15/17 23:59 Weight 102.6 kg - Labs CBC & BMP: 03/13/17 04:52 03/13/17 04:52 Labs: Abnormal lab results MCH 26.8 pg (28.0-33.3) L 03/13/17 04:52 MCHC 30.8 g/dL (31.6-35.5) L 03/13/17 04:52 Plt Count 129 K/mcL (140-400) L 03/13/17 04:52 MPV 12.7 fL (9.4-12.4) H 03/13/17 04:52 Sodium 135 mEq/L (136-145) L 03/13/17 04:52 Potassium 4.7 mEq/L (3.5-4.5) H 03/13/17 04:52 Carbon Dioxide 30 mEq/L (19-29) H 03/13/17 04:52 BUN 31 mg/dL (7-20) H 03/13/17 04:52 Creatinine 3.64 mg/dL (0.57-1.11) H 03/13/17 04:52 Est GFR ( Amer) 15 (> 60) L 03/13/17 04:52 Est GFR (Non-Af Amer) 12 (> 60) L 03/13/17 04:52 Glucose 133 mg/dL (70-99) H 03/13/17 04:52 POC Glucose 113 (58-89) H 03/15/17 07:21 AST 46 Units/L (5-34) H 03/13/17 04:52 Alkaline Phosphatase 136 Units/L (38-126) H 03/13/17 04:52 Albumin 2.5 g/dL (3.5-5.0) L 03/13/17 04:52 Globulin 3.9 g/dL (2.4-3.5) H 03/13/17 04:52 Albumin/Globulin Ratio 0.6 (1.1-2.2) L 03/13/17 04:52 - VTE Documentation of Mechanical Device: Intermittent pneumatic compression device Consult Discharge Plan - Plan Referrals: Jennifer Wynn, BUILDING OPERATOR [Primary Care Provider] - (Web requested 03-11-17)
[2017-03-15] MEDS: metOLazone 2.5 MG TABLET PO SCH (08:28)
[2017-03-15] MEDS: Calcium Acetate 667 MG CAPSULE PO SCH (08:29)
[2017-03-15] MEDS: Renal Vitamin 1 MG CAPSULE PO SCH (08:30)
[2017-03-15] MEDS: Gabapentin 300 MG CAPSULE PO SCH ×2 (08:30→20:48)
[2017-03-15] MEDS: Bumetanide 1 MG TABLET PO SCH (08:30)
[2017-03-15] MEDS: amLODIPine 5 MG TABLET PO SCH (08:32)
[2017-03-15] MEDS: Isosorbide MONOnitrate (24 HR) 30 MG TAB.ER.24H PO SCH (08:33)
--- NOTE | 2017-03-15 08:37 | Nephrology Progress Note ---
Date of Encounter: 03/15/17 Time of Encounter: 08:35 - Assessment and Plan (1) End stage renal disease Current Visit: Yes Status: Acute Patient is stable from a renal perspective. She will continue on the current peritoneal dialysis regimen. (2) Rotator cuff arthropathy Current Visit: Yes Status: Acute Qualifiers: Laterality: left Qualified Code(s): M12.812 - Other specific arthropathies , not elsewhere classified, left shoulder (3) Peritoneal dialysis status Current Visit: Yes Status: Chronic Subjective Principal diagnosis: Status post left total shoulder reverse replacement Interval history: The patient reports overall she is feeling better. She does continue to have some postop shoulder pain. She continues with her current peritoneal dialysis regimen. Discharge planning is in progress. She needs to go to a rehabilitation facility that is able to provide peritoneal dialysis services. Objective - Vital Signs Vital signs: Vital Signs Temp Pulse Resp BP Pulse Ox 03/15/17 07:19 98.2 F 87 17 113/66 98 03/15/17 04:06 98.7 F 76 18 115/67 98 03/15/17 04:00 98.5 F 03/15/17 00:03 98.2 F 84 18 102/58 94 03/14/17 21:45 98 03/14/17 18:50 97.9 F 84 18 117/66 98 03/14/17 16:10 97.3 F L 57 14 107/61 99 03/14/17 15:19 95.8 F L 03/14/17 14:11 95.2 F L 03/14/17 14:00 94.9 F L 03/14/17 11:15 52 16 116/68 100 Intake and Output 03/14/17 03/15/17 03/15/17 23:59 07:59 15:59 Intake Total 150 / 150 0 / 0 Output Total 0 / 0 0 / 0 Balance 150 / 150 0 / 0 Intake: Oral 150 / 150 0 / 0 Output: Urine 0 / 0 0 / 0 Other: Meal Dinner Percent of Meal Consumed 20% Total Peritoneal Dialysis -60 -300 Output # Voids 1 # Urine Diapers 1 1 Weight 103 kg 104.6 kg Blood Glucose* 233 113 Patient Weight 03/15/17 23:59 Weight 104.6 kg - General Appearance Exam: Patient's alert and oriented. She is in no acute distress. Vital signs are stable. Lungs clear to auscultation anteriorly. Heart regular rate and rhythm with a 2/6 talk ejection murmur. Abdomen is soft. There is no tenderness guarding or rigidity. Peritoneal dialysis catheter exit site shows no sign of infection. There is no lower extremity swelling. - Lab 03/13/17 04:52 03/13/17 04:52 Most recent lab results Calcium 9.5 mg/dL (8.6-10.8) 03/13/17 04:52 Phosphorus 3.4 mg/dL (2.3-4.7) 03/13/17 04:52 - VTE Documentation of Mechanical Device: Intermittent pneumatic compression device Consult Discharge Plan - Plan Referrals: Jennifer Wynn CNP [Primary Care Provider] - (Web requested 03-11-17)
[2017-03-16] MEDS: PERITON. DIALYSIS 13-DEX 2.5 % 2,000 ML PERITONEAL SCH ×4 (00:15→18:25)
[2017-03-16] MEDS: *HR* Enoxaparin 30 MG/0.3 ML SYRINGE SQ SCH (05:52)
[2017-03-16] MEDS: Insulin LISPRO 300 UNITS/3 ML VIAL SQ SCH ×4 (08:27→21:41)
[2017-03-16] MEDS: Isosorbide MONOnitrate (24 HR) 30 MG TAB.ER.24H PO SCH (08:31)
[2017-03-16] MEDS: metOLazone 2.5 MG TABLET PO SCH (08:31)
[2017-03-16] MEDS: Gabapentin 300 MG CAPSULE PO SCH ×2 (08:31→21:49)
[2017-03-16] MEDS: Bumetanide 1 MG TABLET PO SCH (08:31)
[2017-03-16] MEDS: Renal Vitamin 1 MG CAPSULE PO SCH (08:31)
[2017-03-16] MEDS: amLODIPine 5 MG TABLET PO SCH (08:31)
[2017-03-16] MEDS: Calcium Acetate 667 MG CAPSULE PO SCH (08:32)
--- NOTE | 2017-03-16 08:58 | Orthopedics Progress Note ---
Date of Encounter: 03/16/17 Time of Encounter: 08:30 - Assessment and Plan (1) Rotator cuff arthropathy Current Visit: Yes Status: Acute Qualifiers: Laterality: left Qualified Code(s): M12.812 - Other specific arthropathies , not elsewhere classified, left shoulder (2) COPD (chronic obstructive pulmonary disease) Current Visit: Yes Status: Chronic Qualifiers: COPD type: unspecified COPD Qualified Code(s): J44.9 - Chronic obstructive pulmonary disease, unspecified (3) Peritoneal dialysis status Current Visit: Yes Status: Chronic (4) Diabetes mellitus type 2, insulin dependent Current Visit: Yes Status: Chronic (5) Hypertension Current Visit: Yes Status: Chronic Qualifiers: Hypertension type: essential hypertension Qualified Code(s): I10 - Essential (primary) hypertension (6) Hyperlipidemia Current Visit: Yes Status: Chronic Qualifiers: Hyperlipidemia type: unspecified Qualified Code(s): E78.5 - Hyperlipidemia , unspecified (7) Hypothyroidism Current Visit: Yes Status: Chronic Qualifiers: Hypothyroidism type: unspecified Qualified Code(s): E03.9 - Hypothyroidism , unspecified (8) Obesity, Class III, BMI 40-49.9 (morbid obesity) Current Visit: Yes Status: Chronic (9) GERD (gastroesophageal reflux disease) Current Visit: Yes Status: Chronic Qualifiers: Esophagitis presence: esophagitis presence not specified Qualified Code(s) : K21.9 - Gastro-esophageal reflux disease without esophagitis Subjective Principal diagnosis: Status post left total shoulder reverse replacement Interval history: Patient is post-op day #6 from left total shoulder reverse replacement. Patient doing well now. Patient has placement lined up for [facility] - now awaiting precert approval per social work. Patient resting comfortably in bed. Patient alert and converses freely. Opsite bandage intact overlying incision site. Patient able to move limbs appropriately bilaterally. Neurovascularly intact to bilateral upper and lower extremities. Continue CryoCuff use. Opsite bandage to be left in place until in office follow up. Anticipated discharge to [facility] facility is today. Objective Vital signs: Vital Signs Temp Pulse Resp BP Pulse Ox 03/16/17 07:02 97.9 F 83 18 134/66 93 03/16/17 04:40 98.2 F 62 16 111/63 96 03/15/17 23:29 98.3 F 80 18 120/69 96 03/15/17 19:04 98.2 F 66 18 112/55 95 03/15/17 15:00 98.1 F 87 17 92/54 98 03/15/17 11:00 97.9 F 84 17 107/61 98 Intake and Output 03/15/17 03/16/17 03/16/17 23:59 07:59 15:59 Other: Total Peritoneal Dialysis 100 260 Output Weight 103 kg 103.6 kg Blood Glucose* 151 140 Patient Weight 03/16/17 23:59 Weight 103.6 kg - Labs CBC & BMP: 03/13/17 04:52 03/13/17 04:52 Labs: Abnormal lab results MCH 26.8 pg (28.0-33.3) L 03/13/17 04:52 MCHC 30.8 g/dL (31.6-35.5) L 03/13/17 04:52 Plt Count 129 K/mcL (140-400) L 03/13/17 04:52 MPV 12.7 fL (9.4-12.4) H 03/13/17 04:52 Sodium 135 mEq/L (136-145) L 03/13/17 04:52 Potassium 4.7 mEq/L (3.5-4.5) H 03/13/17 04:52 Carbon Dioxide 30 mEq/L (19-29) H 03/13/17 04:52 BUN 31 mg/dL (7-20) H 03/13/17 04:52 Creatinine 3.64 mg/dL (0.57-1.11) H 03/13/17 04:52 Est GFR ( Amer) 15 (> 60) L 03/13/17 04:52 Est GFR (Non-Af Amer) 12 (> 60) L 03/13/17 04:52 Glucose 133 mg/dL (70-99) H 03/13/17 04:52 POC Glucose 140 (58-89) H 03/16/17 07:06 AST 46 Units/L (5-34) H 03/13/17 04:52 Alkaline Phosphatase 136 Units/L (38-126) H 03/13/17 04:52 Albumin 2.5 g/dL (3.5-5.0) L 03/13/17 04:52 Globulin 3.9 g/dL (2.4-3.5) H 03/13/17 04:52 Albumin/Globulin Ratio 0.6 (1.1-2.2) L 03/13/17 04:52 - VTE Documentation of Mechanical Device: Intermittent pneumatic compression device Consult Discharge Plan - Plan Referrals: Jennifer Wynn, SPORTS DEVELOPMENT OFFICER [Primary Care Provider] - (Web requested 03-11-17) Taisha Almaraz, PAC [Physician Business Dean] - 03/19/17 8:30 am (Post Op Week # 1: Left Total Shoulder Reverse Replacement performed 03/10/17)
--- NOTE | 2017-03-16 12:57 | Nephrology Progress Note ---
Date of Encounter: 03/16/17 Time of Encounter: 12:56 - Assessment and Plan (1) End stage renal disease Current Visit: Yes Status: Acute Patient is stable from a renal perspective. She will continue on the current peritoneal dialysis regimen. (2) Rotator cuff arthropathy Current Visit: Yes Status: Acute Qualifiers: Laterality: left Qualified Code(s): M12.812 - Other specific arthropathies , not elsewhere classified, left shoulder (3) Peritoneal dialysis status Current Visit: Yes Status: Chronic Subjective Principal diagnosis: Status post left total shoulder reverse replacement Interval history: The patient reports she continues to improve. We are still waiting for discharge planning. Patient will require rehabilitation center where she can receive peritoneal dialysis. Objective - Vital Signs Vital signs: Vital Signs Temp Pulse Resp BP Pulse Ox 03/16/17 11:12 98.2 F 73 16 94/45 99 03/16/17 07:02 97.9 F 83 18 134/66 93 03/16/17 04:40 98.2 F 62 16 111/63 96 03/15/17 23:29 98.3 F 80 18 120/69 96 03/15/17 19:04 98.2 F 66 18 112/55 95 03/15/17 15:00 98.1 F 87 17 92/54 98 Intake and Output 03/15/17 03/16/17 03/16/17 23:59 07:59 15:59 Other: Total Peritoneal Dialysis 100 260 Output Weight 103 kg 103.6 kg Blood Glucose* 151 140 179 Patient Weight 03/16/17 23:59 Weight 103.6 kg - General Appearance Exam: Patient is alert and oriented. She is in no acute distress. Lungs clear to auscultation. Heart regular in rhythm. Abdomen is benign. Catheter exit site is intact. There is no peripheral edema. - Lab 03/13/17 04:52 03/13/17 04:52 Most recent lab results Calcium 9.5 mg/dL (8.6-10.8) 03/13/17 04:52 Phosphorus 3.4 mg/dL (2.3-4.7) 03/13/17 04:52 - VTE Documentation of Mechanical Device: Intermittent pneumatic compression device Consult Discharge Plan - Plan Referrals: Taisha Almaraz, PAC [Physician Bulk Mail Technician] - 03/19/17 8:30 am (Post Op Week # 1: Left Total Shoulder Reverse Replacement performed 03/10/17) Jennifer Wynn, SENIOR SOLUTIONS ENGINEER [Primary Care Provider] - (Web requested 03-11-17)
[2017-03-17] MEDS: PERITON. DIALYSIS 13-DEX 2.5 % 2,000 ML PERITONEAL SCH ×4 (00:18→17:28)
[2017-03-17] MEDS: *HR* Enoxaparin 30 MG/0.3 ML SYRINGE SQ SCH (05:46)
[2017-03-17] MEDS: Insulin LISPRO 300 UNITS/3 ML VIAL SQ SCH ×3 (07:29→16:43)
[2017-03-17] MEDS: Bumetanide 1 MG TABLET PO SCH (09:17)
[2017-03-17] MEDS: metOLazone 2.5 MG TABLET PO SCH (09:17)
[2017-03-17] MEDS: Calcium Acetate 667 MG CAPSULE PO SCH (09:17)
[2017-03-17] MEDS: Gabapentin 300 MG CAPSULE PO SCH (09:17)
[2017-03-17] MEDS: Renal Vitamin 1 MG CAPSULE PO SCH (09:18)
--- NOTE | 2017-03-17 13:29 | Nephrology Progress Note ---
Date of Encounter: 03/17/17 Time of Encounter: 13:28 - Assessment and Plan (1) End stage renal disease Current Visit: Yes Status: Acute Patient is stable from a renal perspective. She will continue on the current peritoneal dialysis regimen. (2) Rotator cuff arthropathy Current Visit: Yes Status: Acute Qualifiers: Qualified Code(s): M12.812 - Other specific arthropathies, not elsewhere classified, left shoulder (3) Peritoneal dialysis status Current Visit: Yes Status: Chronic Subjective Principal diagnosis: Status post left total shoulder reverse replacement Interval history: The patient reports she is doing well. She reports she may be going to the rehabilitation facility later today. Her dialysis appears to be going well. Vital signs are stable. Objective - Vital Signs Vital signs: Vital Signs Temp Pulse Resp BP Pulse Ox 03/17/17 10:48 98.6 F 73 16 108/67 98 03/17/17 09:10 99 03/17/17 07:03 97.6 F 76 17 98/63 99 03/17/17 04:35 98.1 F 77 17 129/62 96 03/17/17 00:11 98.2 F 81 19 131/52 96 03/16/17 20:32 98.0 F 63 15 110/65 96 03/16/17 15:31 97.8 F 83 16 99/63 95 Intake and Output 03/16/17 03/17/17 03/17/17 23:59 07:59 15:59 Intake Total 120 / 120 Output Total 0 / 0 Balance 120 / 120 Intake: Oral 120 / 120 Output: Urine 0 / 0 Other: Meal Lunch Percent of Meal Consumed 90% Total Peritoneal Dialysis -50 460 Output # Urine Diapers 1 Weight 103.6 kg Blood Glucose* 199 112 119 Patient Weight 03/17/17 23:59 Weight 103.6 kg - General Appearance Exam: Patient is alert and oriented. She is in no acute distress. Lungs clear to auscultation. Heart regular rate and rhythm. Abdomen is benign. She has minimal lower extremity swelling. Per general dialysis catheter site shows no obvious sign of infection. - Lab 03/13/17 04:52 03/13/17 04:52 Most recent lab results Calcium 9.5 mg/dL (8.6-10.8) 03/13/17 04:52 Phosphorus 3.4 mg/dL (2.3-4.7) 03/13/17 04:52 - VTE Documentation of Mechanical Device: Intermittent pneumatic compression device Consult Discharge Plan - Plan Referrals: Taisha Almaraz, PAC [Physician Cement Breaker] - 03/19/17 8:30 am (Post Op Week # 1: Left Total Shoulder Reverse Replacement performed 03/10/17) Jennifer Wynn, PERFORMANCE MANAGEMENT CONSULTANT [Primary Care Provider] - (Web requested 03-11-17)
--- NOTE | 2017-03-17 13:30 | Orthopedics Progress Note ---
Date of Encounter: 03/17/17 Time of Encounter: 12:00 - Assessment and Plan (1) Rotator cuff arthropathy Current Visit: Yes Status: Acute Qualifiers: Laterality: left Qualified Code(s): M12.812 - Other specific arthropathies , not elsewhere classified, left shoulder (2) COPD (chronic obstructive pulmonary disease) Current Visit: Yes Status: Chronic Qualifiers: COPD type: unspecified COPD Qualified Code(s): J44.9 - Chronic obstructive pulmonary disease, unspecified (3) Peritoneal dialysis status Current Visit: Yes Status: Chronic (4) Diabetes mellitus type 2, insulin dependent Current Visit: Yes Status: Chronic (5) Hypertension Current Visit: Yes Status: Chronic Qualifiers: Hypertension type: essential hypertension Qualified Code(s): I10 - Essential (primary) hypertension (6) Hyperlipidemia Current Visit: Yes Status: Chronic Qualifiers: Hyperlipidemia type: unspecified Qualified Code(s): E78.5 - Hyperlipidemia , unspecified (7) Hypothyroidism Current Visit: Yes Status: Chronic Qualifiers: Hypothyroidism type: unspecified Qualified Code(s): E03.9 - Hypothyroidism , unspecified (8) Obesity, Class III, BMI 40-49.9 (morbid obesity) Current Visit: Yes Status: Chronic (9) GERD (gastroesophageal reflux disease) Current Visit: Yes Status: Chronic Qualifiers: Esophagitis presence: esophagitis presence not specified Qualified Code(s) : K21.9 - Gastro-esophageal reflux disease without esophagitis Subjective Principal diagnosis: Status post left total shoulder reverse replacement Interval history: Patient is post-op day #7 from left total shoulder reverse replacement. Patient doing well. Patient has placement lined up for [facility] - now awaiting transport. Patient resting comfortably in bed. Patient alert and converses freely. Opsite bandage intact overlying incision site. Patient able to move limbs appropriately bilaterally. Neurovascularly intact to bilateral upper and lower extremities. Continue CryoCuff use. Opsite bandage to be changed today prior to discharge and left in place until in office follow up. XRay of shoulder today prior to discharge. Will push her in office follow up to next week as patient was seen and examined today. Anticipated discharge to [facility] facility is today. Objective Vital signs: Vital Signs Temp Pulse Resp BP Pulse Ox 03/17/17 10:48 98.6 F 73 16 108/67 98 03/17/17 09:10 99 03/17/17 07:03 97.6 F 76 17 98/63 99 03/17/17 04:35 98.1 F 77 17 129/62 96 03/17/17 00:11 98.2 F 81 19 131/52 96 03/16/17 20:32 98.0 F 63 15 110/65 96 03/16/17 15:31 97.8 F 83 16 99/63 95 Intake and Output 03/16/17 03/17/17 03/17/17 23:59 07:59 15:59 Intake Total 120 / 120 Output Total 0 / 0 Balance 120 / 120 Intake: Oral 120 / 120 Output: Urine 0 / 0 Other: Meal Lunch Percent of Meal Consumed 90% Total Peritoneal Dialysis -50 460 Output # Urine Diapers 1 Weight 103.6 kg Blood Glucose* 199 112 119 Patient Weight 03/17/17 23:59 Weight 103.6 kg - Labs CBC & BMP: 03/13/17 04:52 03/13/17 04:52 Labs: Abnormal lab results MCH 26.8 pg (28.0-33.3) L 03/13/17 04:52 MCHC 30.8 g/dL (31.6-35.5) L 03/13/17 04:52 Plt Count 129 K/mcL (140-400) L 03/13/17 04:52 MPV 12.7 fL (9.4-12.4) H 03/13/17 04:52 Sodium 135 mEq/L (136-145) L 03/13/17 04:52 Potassium 4.7 mEq/L (3.5-4.5) H 03/13/17 04:52 Carbon Dioxide 30 mEq/L (19-29) H 03/13/17 04:52 BUN 31 mg/dL (7-20) H 03/13/17 04:52 Creatinine 3.64 mg/dL (0.57-1.11) H 03/13/17 04:52 Est GFR ( Amer) 15 (> 60) L 03/13/17 04:52 Est GFR (Non-Af Amer) 12 (> 60) L 03/13/17 04:52 Glucose 133 mg/dL (70-99) H 03/13/17 04:52 POC Glucose 119 (58-89) H 03/17/17 10:50 AST 46 Units/L (5-34) H 03/13/17 04:52 Alkaline Phosphatase 136 Units/L (38-126) H 03/13/17 04:52 Albumin 2.5 g/dL (3.5-5.0) L 03/13/17 04:52 Globulin 3.9 g/dL (2.4-3.5) H 03/13/17 04:52 Albumin/Globulin Ratio 0.6 (1.1-2.2) L 03/13/17 04:52 - VTE Documentation of Mechanical Device: Intermittent pneumatic compression device Consult Discharge Plan - Plan Referrals: Jennifer Wynn, ACCESS RN [Primary Care Provider] - (Web requested 03-11-17) Taisha Almaraz, PAC [Physician Bracelet And Brooch Maker] - 03/24/17 11:15 am (Post Op Week #2: Left Total Shoulder Reverse Replacement performed 03/10/17)
[2017-03-17] MEDS: Isosorbide MONOnitrate (24 HR) 30 MG TAB.ER.24H PO SCH (15:51)
[2017-03-17] MEDS: amLODIPine 5 MG TABLET PO SCH (15:51)
[2017-03-17 20:02] VITALS: BP 93/57
== END 2017-03-17 20:01 | disposition home or self-care (01) | DRG 483 ==
LOC: SAMDAY 08:52 → 3NENU 15:07 → 2ANU 18:19
PROVIDERS: ADMIT Orthopaedic Surgery; ATTEND Orthopaedic Surgery

== ENCOUNTER 2017-10-08 13:25 | Observation (INO) ==
[2017-10-08] MEDS ORDERED: *HR* FentaNYL (PF) 100 MCG/2 ML VIAL IVP ONE ×2 (13:53→16:54)
[2017-10-08 14:24] LABS: Basophils % 0.3 %; Hematocrit 37.4 % (35.3-44.9); Red Cell Distribution Width 15.4 % (11.5-14.5)
[2017-10-08 14:25] LABS: Eosinophils # 0.2 K/mcL (0.0-0.6); Eosinophils % 3.1 %; Hemoglobin 10.8 g/dL (11.5-15.4); Immature Granulocytes % 0.4 % (0-4); Lymphocytes # 1.3 K/mcL (0.6-4.6); Lymphocytes % 17.8 %; Mean Corpuscular HGB Conc 28.9 g/dL (31.6-35.5); Mean Corpuscular Hemoglobin 27.3 pg (28.0-33.3); Mean Corpuscular Volume 94.7 fL (83.0-100.0); Mean Platelet Volume 12.1 fL (9.4-12.4); Monocytes # 0.6 K/mcL (0.0-1.3); Monocytes % 8.2 %; Neutrophils # 5.2 K/mcL (1.6-8.9); Platelet Count 119 K/mcL (140-400); Red Blood Count 3.95 M/mcL (3.82-4.97); Segmented Neutrophils % 70.2 %
[2017-10-08] MEDS: 0.9 % Sodium Chloride 500 ML IVC SCH (14:41)
[2017-10-08 14:46] LABS: Anisocytosis 1+ (Not Present)
--- NOTE | 2017-10-08 15:18 | Emergency Department Note ---
Disposition Clinical Impression: Right-sided chest wall pain Complications, dialysis, catheter, mechanical Qualifiers: Encounter type: initial encounter Qualified Code(s): T82.49XA - Other complication of vascular dialysis catheter, initial encounter Disposition: Admitted As Inpatient Condition: Fair Time of Disposition: 18:08 General Adult HPI - General Chief complaint: ED General Medical Stated complaint: HD shunt problem Time Seen by Provider: 10/08/17 13:29 Source: patient, EMS Limitations: no limitations Nursing Notes Reviewed: Yes Vital Signs Reviewed: Yes - History of Present Illness HPI Narrative: The patient is a 72-year-old female who is sent over from dialysis center for problems concerning the patient's dialysis port in the right upper chest area. Patient was having severe pain at around the site extension of her neck. Dr. Archibald her inspector of weights and measures wanted to get her port checked out for possible malposition. Patient states the pain in the neck started last night. She had dialysis 2 days ago she only has a dialysis Wednesday and Wednesday and had no problems 2 days ago she had dialysis. Patient states the pain is 9/10 constant nothing makes the pain better. Patient states at times pain feels like electricity. Pain Scale: 6 - Related Data Home Medications Medication Instructions Recorded Confirmed Calcium Acetate [Phos-LO] 667 mg PO TIDWM 08/30/15 10/08/17 Gabapentin [Neurontin] 300 mg PO BID 08/30/15 10/08/17 Montelukast [Singulair] 10 mg PO DAILY 08/30/15 10/08/17 Carvedilol [Coreg] 25 mg PO BID 03/10/17 10/08/17 Cholecalciferol (Vitamin D3) 50,000 unit PO Q2W 03/10/17 10/08/17 [Vitamin D] Hydralazine HCl 50 mg PO TID 03/10/17 10/08/17 Insulin DETEMIR [Levemir] 35 unit SQ HS 03/10/17 10/08/17 Simvastatin [Zocor] 20 mg PO HS 03/10/17 10/08/17 Tizanidine HCl 2 mg PO BID PRN 03/10/17 10/08/17 Tramadol HCl [Ultram] 50 mg PO Q6H PRN 03/10/17 10/08/17 amLODIPine [Norvasc] 5 mg PO DAILY 03/10/17 10/08/17 Cetirizine HCl [Zyrtec] 10 mg PO DAILY 10/08/17 10/08/17 Fluconazole [Diflucan] 200 mg PO TUTHSA 10/08/17 10/08/17 Fluocinonide [Fluocinonide] 1 - 2 gm TP AD 10/08/17 10/08/17 Gemfibrozil [Lopid] 600 mg PO BIDWM 10/08/17 10/08/17 Ipratropium/Albuterol Neb [Duoneb] 3 ml IH Q6HR PRN 10/08/17 10/08/17 Levothyroxine [Synthroid] 25 mcg PO 0630 10/08/17 10/08/17 Lidocaine 1 appl TP QID PRN 10/08/17 10/08/17 Mag Hydrox/Al Hydrox/Simeth 30 ml PO QID PRN 10/08/17 10/08/17 [Antacid Suspension] Ondansetron HCl [Zofran] 4 mg PO Q8H PRN 10/08/17 10/08/17 Oxycodone HCl 2.5 mg PO Q12H 10/08/17 10/08/17 Pantoprazole Sodium [Protonix] 40 mg PO DAILY 10/08/17 10/08/17 Ranitidine HCl [Zantac] 150 mg PO BID 10/08/17 10/08/17 Allergies Allergy/AdvReac Type Severity Reaction Status Date / Time adhesive tape AdvReac Rash Verified 03/10/17 09:54 aspirin AdvReac Nausea Verified 03/10/17 09:54 meperidine [From Demerol] AdvReac Dizziness Verified 03/10/17 09:54 propoxyphene AdvReac Nausea Verified 03/10/17 09:54 [From Darvocet-N] Sulfa (Sulfonamide AdvReac Hives Verified 03/10/17 09:54 Antibiotics) All systems ED: reviewed and negative except as stated. Review of Systems: As Per HPI Constitutional: Denies: fever Eyes: Denies: eye pain ENT ED: Denies: congestion Cardiovascular: Reports: chest pain Respiratory: Denies: cough, dyspnea, wheezes Gastrointestinal: Denies: abdominal pain, nausea, vomiting, diarrhea Genitourinary: Denies: urgency, dysuria, frequency Musculoskeletal: Reports: back pain Integumentary: Reports: lesions. Denies: rash Endocrine: Reports: fatigue Hematological/Lymphatic: Reports: easy bruising Past Medical History - Past Medical History Attestation: Yes The following information was validated with the patient. Source: patient Medical history: Reports: cancer, CHF, COPD, coronary artery disease, diabetes, hepatitis, hyperlipidemia, hypertension, renal disease Surgical history: Reports: breast surgery, cancer surgery, cataract, cholecystectomy, hysterectomy, knee replacement Psychiatric history: Reports: no psych history - Social History Smoking Status: Former smoker Smokeless Tobacco Status: No Alcohol use: Reports: none Drug use: Reports: none Physical Exam Vital Signs Temperature 97.9 F 10/08/17 13:27 Pulse Rate 71 10/08/17 13:27 Respiratory Rate 18 10/08/17 13:27 Blood Pressure 169/78 10/08/17 13:27 O2 Sat by Pulse Oximetry 100 10/08/17 13:27 Temperature 97.7 F 10/08/17 21:47 Pulse Rate 66 10/08/17 21:47 Respiratory Rate 16 10/08/17 21:47 Blood Pressure 157/75 10/08/17 21:47 O2 Sat by Pulse Oximetry 94 10/08/17 21:47 Oxygen Delivery Oxygen Delivery Nasal Cannula Patient is a 72-year-old female who is alert and oriented 3 and in no acute distress outside of the pain in her right upper chest wall surrounding her dialysis port which does not look. He has any induration. It is tender to palpation around the port and around the right side of her neck. Patient has a large area of ecchymosis underneath her chin from when the port was placed 12 days ago. Patient states the bruises and ecchymosis was a lot larger after the procedure. - General Limitations: no limitations General appearance: alert, in no apparent distress - Head Head exam: atraumatic, normocephalic, normal inspection - Eye Eye exam: Present: normal appearance, PERRL, EOMI - ENT ENT exam: normal exam, normal oropharynx, mucous membranes dry - Neck Neck exam: Present: full ROM, trachea midline, tenderness. Absent: lymphadenopathy - Chest Chest inspection: Present: symmetric chest wall rise, tenderness. Absent: rash , abscess - Respiratory Respiratory exam: Present: normal lung sounds bilaterally. Absent: respiratory distress, wheezes - Cardiovascular Cardiovascular exam: Present: regular rate, normal rhythm, normal heart sounds - Abdominal Exam Abdominal exam: Present: soft, Non-Tender. Absent: tenderness, distention, guarding, rebound, rigidity - Extremities Exam Extremities exam: Present: normal inspection, full ROM. Absent: tenderness, pedal edema - Back Exam Back exam: Present: normal inspection, full ROM, tenderness (Chronic), CVA tenderness (L), paraspinal tenderness. Absent: CVA tenderness (R) - Neurological Exam Neurological exam: Present: alert, oriented X3 - Skin Skin exam: Present: warm, dry, intact, normal color Course - Consultations Consultation #1: Discussed case with Dr. Sigala of nephrology this patient's inspector of weights and measures and the referring doctor to the ED who states he is not sure what is going on with the catheter but since chest x-ray does not show any complications currently lives bodice to check with a CT scan with contrast to look for underlying subacute clot. Time: 14:50 Consultation #2: Patient admitted to Dr. King the hospitalist per recommendation from nephrology Dr. Archibald who will perform dialysis tomorrow morning and assess the catheter. Time: 16:54 Vital Signs Temperature 97.9 F 10/08/17 13:27 Pulse Rate 71 10/08/17 13:27 Respiratory Rate 18 10/08/17 13:27 Blood Pressure 169/78 10/08/17 13:27 O2 Sat by Pulse Oximetry 100 10/08/17 13:27 Temperature 97.7 F 10/08/17 21:47 Pulse Rate 66 10/08/17 21:47 Respiratory Rate 16 10/08/17 21:47 Blood Pressure 157/75 10/08/17 21:47 O2 Sat by Pulse Oximetry 94 10/08/17 21:47 Oxygen Delivery Oxygen Delivery Nasal Cannula Medical Decision Making - [facility] Narrative Medical decision making narrative: Patient presented with concerns for possible illness alignment of her dialysis catheter. Chest x-ray 2 view was performed at the request of her inspector of weights and measures. Alignment looks fine. Patient's pain was treated with fentanyl which seemed to work to make her comfortable. Patient's labs showed elevation of her BUN and creatinine but patient's potassium level was within normal range. Patient otherwise well and only has problems with her bowels for which is causing her pain. After discussion with Dr. Wheeler we agreed that CT scan of the chest may give more information to rule out possible subacute blockage secondary to hematoma. Results of that CT showed no blockage and no clots and no clinically correlated signs of infection. After reevaluation and discussion with Dr. Archibald he recommends admission to medicine for which he will see the patient tomorrow morning and perform dialysis and reassessed the catheter. Dr. King the hospitalist has accepted pt for admission. - Lab Data Lab results reviewed: Yes I reviewed the patient's lab results. Lab results narrative: Short CBC 10/08/17 Range/Units 14:14 WBC 7.4 (4.3-11.1) K/mcL Hgb 10.8 L (11.5-15.4) g/dL Hct 37.4 (35.3-44.9) % Plt Count 119 L (140-400) K/mcL Neutrophils # 5.2 (1.6-8.9) K/mcL BMP 10/08/17 Range/Units 14:14 Sodium 141 (136-145) mEq/L Potassium 4.0 (3.5-4.5) mEq/L Chloride 105 (98-109) mEq/L Carbon Dioxide 26 (19-29) mEq/L BUN 18 (7-20) mg/dL Creatinine 3.52 H (0.57-1.11) mg/dL Glucose 103 H (70-99) mg/dL Calcium 9.0 (8.6-10.8) mg/dL Result diagrams: 10/08/17 14:14 10/08/17 14:14 Lab Results 10/08/17 10/08/17 10/08/17 Range/Units 14:14 14:14 14:15 WBC 7.4 (4.3-11.1) K/mcL RBC 3.95 (3.82-4.97) M/mcL Hgb 10.8 L (11.5-15.4) g/dL Hct 37.4 (35.3-44.9) % MCV 94.7 (83.0-100.0) fL MCH 27.3 L (28.0-33.3) pg MCHC 28.9 L (31.6-35.5) g/dL RDW 15.4 H (11.5-14.5) % Plt Count 119 L (140-400) K/mcL MPV 12.1 (9.4-12.4) fL Immature Gran % 0.4 (0-4) % Seg Neutrophils % 70.2 % Lymphocytes % 17.8 % Monocytes % 8.2 % Eosinophils % 3.1 % Basophils % 0.3 % Neutrophils # 5.2 (1.6-8.9) K/mcL Lymphocytes # 1.3 (0.6-4.6) K/mcL Monocytes # 0.6 (0.0-1.3) K/mcL Eosinophils # 0.2 (0.0-0.6) K/mcL Basophils # 0.0 (0.0-0.2) K/mcL Anisocytosis 1+ A (Not Present) Sodium 141 (136-145) mEq/L Potassium 4.0 (3.5-4.5) mEq/L Chloride 105 (98-109) mEq/L Carbon Dioxide 26 (19-29) mEq/L BUN 18 (7-20) mg/dL Creatinine 3.52 H (0.57-1.11) mg/dL Est GFR ( Amer) 15 L (> 60) Est GFR (Non-Af Amer) 13 L (> 60) BUN/Creatinine Ratio 5 L (6-26) Glucose 103 H (70-99) mg/dL Est Mean Plasma Glucose 88 mg/dl Hemoglobin A1c 4.7 ( - 5.6) % Calculated Osmolality 294 (280-300) Calcium 9.0 (8.6-10.8) mg/dL - Radiology Data Radiology results reviewed: Yes I reviewed the patient's radiology results. Chest X-Ray 10/08/17 13:33 IMPRESSION: 1. Hypoaeration with stable cardiomegaly and chronic pulmonary venous hypertension. 2. Bibasilar atelectasis. No effusion or consolidation. 3. Right-sided dual-lumen CVC with distal catheter tip in the right atrium. No focal chest wall abnormality identified on this exam. If persistent concern for chest wall abnormality evaluation with CT thorax with contrast is recommended. D/ / 10/08/2017 14:50:02 Stephan Ortiz MD / cara Interpreting Provider: Stephan Ortiz MD Chest CT 10/08/17 14:53 IMPRESSION: 1. There is fat stranding surrounding the right-sided tunneled dialysis catheter,, presumably secondary to postprocedural stranding. Correlate with any clinical evidence of cellulitis. No focal hematomas are identified. No focal fluid collections are found. The tip of the dialysis catheter terminates in the right atrium. 2. Patchy airspace disease within both lungs, probably atelectasis. Correlate with any clinical evidence of pneumonia. D/ / Leopoldo Palmer MD / Leopoldo Palmer MD Interpreting Provider: Leopoldo Palmer MD - EKG Data EKG #1 EKG attestation: Yes I reviewed and interpreted this EKG. EKG results narrative: EKG taken 10/08/2017 at 1400 R shows a sinus rhythm at a rate of 66 beats a minute with a first-degree AV block, no acute ST elevations or depressions and a leads, curious widened QT prolongation. No previous EKG for comparison. Attestation Statement - Attestation Attestation: I, Artemio Ricardo, examined this patient and my medical decision-making was reviewed with the HAT MARKER/PA/Advanced Practice Nurse/Resident Physician. I agree with the documented findings, disposition and treatment plan as described except to the extent set forth below. 72-year-old female presents emergency department for evaluation of painful dialysis shunt that was placed 11 days ago. Patient previously had undergone peritoneal dialysis however she port was placed in the right upper chest for dialysis. Patient has tenderness to palpation of the catheter. She was unable to complete her dialysis session secondary to the pain. X-ray shows catheter in place. They recommended CT which was obtained which also shows catheter to have a tract ending towards the right atrium. Resident spoke with Dr. Hernandez who felt comfortable with the plan for admission to hospital for further care and evaluation and dialysis.
[2017-10-08] MEDS ORDERED: tiZANidine 4 MG TABLET PO PRN (19:47)
[2017-10-08] MEDS ORDERED: Ipratropium/Albuterol Neb 3 ML IH PRN (19:47)
[2017-10-08] MEDS ORDERED: Lidocaine OINT 35.44 GM TUBE TP PRN (19:47)
[2017-10-08] MEDS ORDERED: traMADol 50 MG TABLET PO PRN (19:47)
[2017-10-08] MEDS ORDERED: Mag Hydrox/Al Hydrox/Simeth 30 ML UDC PO PRN (19:47)
[2017-10-08] MEDS ORDERED: Naloxone 0.4 MG/ML INJ IVP PRN (19:49)
[2017-10-08] MEDS ORDERED: Ondansetron 4 MG/2 ML VIAL IVP PRN (19:49)
[2017-10-08] MEDS ORDERED: Dextrose Gel 15 GM PO PRN ×2 (19:53)
[2017-10-08] MEDS ORDERED: *HR* Dextrose 50 % in Water (Syg) 50 ML SYRINGE IVP PRN (19:53)
[2017-10-08] MEDS ORDERED: D5% in Water 1,000 ML IVC PRN (19:53)
--- NOTE | 2017-10-08 19:56 | Internal Med History&Physical ---
Date of Encounter: 10/08/17 Time of Encounter: 19:55 Assessment and Plan (1) COPD (chronic obstructive pulmonary disease) Current visit: No Status: Chronic No evidence of exacerbation. Continue inhaled bronchodilators. Continue with oxygen by nasal cannula. Qualifiers: COPD type: unspecified COPD Qualified Code(s): J44.9 - Chronic obstructive pulmonary disease, unspecified (2) Diabetes mellitus type 2, insulin dependent Current visit: No Status: Chronic Insulin sliding scale and Levemir. (3) Hypertension Current visit: No Status: Chronic Continue home meds including amlodipine and hydralazine. Qualifiers: Hypertension type: essential hypertension Qualified Code(s): I10 - Essential (primary) hypertension (4) Hyperlipidemia Current visit: No Status: Chronic Qualifiers: Hyperlipidemia type: unspecified Qualified Code(s): E78.5 - Hyperlipidemia , unspecified (5) Complications, dialysis, catheter, mechanical Current visit: Yes Status: Acute We will consult nephrology for assessment of catheter functionality for hemodialysis. Insertion site appears with no evidence of bleeding, hematoma, cellulitis or any other complications. Will use tramadol for pain. Qualifiers: Encounter type: initial encounter Qualified Code(s): T82.49XA - Other complication of vascular dialysis catheter, initial encounter (6) Right-sided chest wall pain Current visit: Yes Status: Acute Tramadol and oxycodone for pain. (7) End-stage renal disease on hemodialysis Current visit: Yes Status: Acute We will consult nephrology. Internal Medicine - H&P: HPI Chief complaint: Blocked dialysis catheter Admitted From: Emergency Dept Plans for Post Hospital Care: Home History of present illness: Ms. Bardales is a 72 year old female with past medical history significant for hypertension, end-stage renal disease, COPD, CHF, coronary artery disease, breast cancer, insulin-dependent diabetes, hyperlipidemia who presented to the emergency department sent from her dialysis center due to pain and a catheter site. She had a hemodialysis catheter placed in 10 days ago and had 2 sessions of hemodialysis, today she had a scheduled hemodialysis session. During that she experienced severe sharp shooting pain in the bright side of the chest radiating to the neck every time dialysis was attempted. The pain improved after they stopped hemodialysis. Denies any associated shortness of breath. She could not receive hemodialysis and was sent to the hospital for evaluation. A 10 point review of systems was negative Surgical history: Back surgery Family history: Reviewed and found to be noncontributory. No history of breast cancer in first-degree family members. Social history: Remote history of smoking, denies alcohol and drug use. Lives at home independently. Past Med Surg Social Fam HX - Past Medical History Medical history: cancer, CHF, COPD, coronary artery disease, diabetes, hepatitis , hyperlipidemia, hypertension, renal disease Psychiatric history: no psych history - Past Surgical History Surgical History: breast surgery, cancer surgery, cataract, cholecystectomy, hysterectomy, knee replacement - Social History Smoking Status: Former smoker Smokeless Tobacco Status: No Alcohol use: none Drug use: none Internal Medicine - H&P: Meds Calcium Acetate [Phos-LO] 667 mg PO TIDWM 08/30/15 [History] Gabapentin [Neurontin] 300 mg PO BID 08/30/15 [History] Montelukast [Singulair] 10 mg PO DAILY 08/30/15 [History] Carvedilol [Coreg] 25 mg PO BID 03/10/17 [History] Cholecalciferol (Vitamin D3) [Vitamin D] 50,000 unit PO Q2W 03/10/17 [History] Hydralazine HCl 50 mg PO TID 03/10/17 [History] Insulin DETEMIR [Levemir] 35 unit SQ HS 03/10/17 [History] Simvastatin [Zocor] 20 mg PO HS 03/10/17 [History] Tizanidine HCl 2 mg PO BID PRN 03/10/17 [History] Tramadol HCl [Ultram] 50 mg PO Q6H PRN 03/10/17 [History] amLODIPine [Norvasc] 5 mg PO DAILY 03/10/17 [History] Cetirizine HCl [Zyrtec] 10 mg PO DAILY 10/08/17 [History] Fluconazole [Diflucan] 200 mg PO TUTHSA 10/08/17 [History] Fluocinonide [Fluocinonide] 1 - 2 gm TP AD 10/08/17 [History] Gemfibrozil [Lopid] 600 mg PO BIDWM 10/08/17 [History] Ipratropium/Albuterol Neb [Duoneb] 3 ml IH Q6HR PRN 10/08/17 [History] Levothyroxine [Synthroid] 25 mcg PO 0630 10/08/17 [History] Lidocaine 1 appl TP QID PRN 10/08/17 [History] Mag Hydrox/Al Hydrox/Simeth [Antacid Suspension] 30 ml PO QID PRN 10/08/17 [ History] Ondansetron HCl [Zofran] 4 mg PO Q8H PRN 10/08/17 [History] Oxycodone HCl 2.5 mg PO Q12H 10/08/17 [History] Pantoprazole Sodium [Protonix] 40 mg PO DAILY 10/08/17 [History] Ranitidine HCl [Zantac] 150 mg PO BID 10/08/17 [History] 3 Allergy/AdvReac Type Severity Reaction Status Date / Time adhesive tape AdvReac Rash Verified 03/10/17 09:54 aspirin AdvReac Nausea Verified 03/10/17 09:54 meperidine [From Demerol] AdvReac Dizziness Verified 03/10/17 09:54 propoxyphene AdvReac Nausea Verified 03/10/17 09:54 [From Darvocet-N] Sulfa (Sulfonamide AdvReac Hives Verified 03/10/17 09:54 Antibiotics) All Systems PM: A 10-system review of systems was performed and is negative for pertinent findings except as documented above in the HPI. - Constitutional Vitals: Temp Pulse Resp BP Pulse Ox 97.9 F 84 18 130/78 98 10/08/17 13:27 10/08/17 16:59 10/08/17 16:59 10/08/17 16:59 10/08/17 16:59 General appearance: Present: A&O X 3, no acute distress - Eye Eye exam: Present: PERRL, conjuntiva pink, sclera anicteric Pupils: Present: PERRL - Respiratory Respiratory exam: Present: wheezes (Fine expiratory wheezes). Absent: accessory muscle use, rales, rhonchi - Cardiovascular Cardiovascular exam: Present: RRR, +S1, +S2. Absent: diastolic murmur, gallop, rubs, systolic murmur - GI/Abdominal GI/Abdominal exam: Present: normal bowel sounds, soft, no peritoneal signs. Absent: distended, tenderness - Extremities Exam Extremities exam: Present: pedal edema (Trace lower extremity edema), warm, radial pulses palpable and symmetrical. Absent: calf tenderness, cyanotic - Neurological Exam Neurological exam: Present: CN II-XII intact, oriented X3, no focal deficits. Absent: pronater drift, facial droop, speech deficit - Skin Skin exam: Present: dry, intact Internal Med - H&P Results - Labs CBC & Chem 7: 10/08/17 14:14 10/08/17 14:14
[2017-10-08 20:24] LABS: Hemoglobin A1C 4.7 %
[2017-10-08] MEDS ORDERED: NON-FORMULARY MEDICATION 1 EACH EACH (Insulin Detemir 35 UNIT) SQ SCH (21:00)
[2017-10-08] MEDS: hydrALAZINE 25 MG TABLET PO SCH (21:53)
[2017-10-08] MEDS: Famotidine 20 MG TABLET PO SCH (21:53)
[2017-10-08] MEDS: *HR* OxyCODONE Immed Rel 5 MG TABLET PO SCH (21:54)
[2017-10-08] MEDS: Insulin DETEMIR 100 UNIT/ML X5UNITS SQ SCH (21:54)
[2017-10-09] MEDS: Insulin LISPRO 300 UNITS/3 ML VIAL SQ SCH ×4 (00:36→18:56)
[2017-10-09] MEDS: Levothyroxine 25 MCG TABLET PO SCH (05:43)
[2017-10-09 06:12] LABS: Basophils % 0.2 %; Mean Corpuscular Hemoglobin 27.1 pg (28.0-33.3)
[2017-10-09 06:13] LABS: Eosinophils # 0.1 K/mcL (0.0-0.6); Hematocrit 37.2 % (35.3-44.9); Hemoglobin 10.4 g/dL (11.5-15.4); INR 1.1; Immature Granulocytes % 0.4 % (0-4); Lymphocytes # 0.9 K/mcL (0.6-4.6); Lymphocytes % 19.5 %; Mean Corpuscular Volume 96.9 fL (83.0-100.0); Mean Platelet Volume 12.4 fL (9.4-12.4); Monocytes # 0.3 K/mcL (0.0-1.3); Monocytes % 7.4 %; Neutrophils # 3.2 K/mcL (1.6-8.9); Platelet Count 109 K/mcL (140-400); Prothrombin Time 12.1 Seconds (9.4-12.1); Red Blood Count 3.84 M/mcL (3.82-4.97); Red Cell Distribution Width 15.5 % (11.5-14.5); Segmented Neutrophils % 69.5 %
[2017-10-09 06:20] LABS: Calcium 9.1 mg/dL (8.6-10.8); Potassium 4.3 mEq/L (3.5-4.5)
[2017-10-09 06:45] LABS: Hypochromasia Present (Not Present); Platelet Estimate Normal (Normal)
--- NOTE | 2017-10-09 07:49 | Nephrology Consult Note ---
Date of Encounter: 10/09/17 Time of Encounter: 07:47 Assessment and Plan (1) End stage renal disease Current Visit: No Status: Acute The patient has end-stage renal disease and receives dialysis every Wednesday. She did not receive dialysis yesterday because of increased pain at her catheter site as well as her neck when she was placed on the machine. The CT scan as well as chest x-ray does not show any obvious complications related to the catheter or soft tissues. I believe most of her discomfort is simply related to the bruising that is postprocedural. We will go ahead and have her dialyzed today. If she does well with dialysis from a renal standpoint she can be discharged home. (2) Complications, dialysis, catheter, mechanical Current Visit: Yes Status: Acute Qualifiers: Encounter type: initial encounter Qualified Code(s): T82.49XA - Other complication of vascular dialysis catheter, initial encounter History of Present Illness - History of Present Illness This is a 72-year-old female with end-stage renal disease. She receives dialysis every Wednesday. The patient recently had a new right- sided tunneled dialysis catheter placed at [facility]. Patient was in dialysis yesterday morning. She was experiencing pain in her shoulder and her neck. When she was started on the dialysis machine the pain acutely worsened. Dialysis was discontinued and the patient was sent to the emergency room for further evaluation. Chest x-ray confirmed adequate placement of the dialysis catheter. There was no pneumothorax. CT scan showed no obvious soft tissue injuries or issues. On exam the patient has a great deal of bruising from the upper portion of her chest neck and extending down to her back. The patient is tender to touch. She has no obvious external sign of infection. Past Med Surg Social Fam HX - Past Medical History Medical history: cancer, CHF, COPD, coronary artery disease, diabetes, hepatitis , hyperlipidemia, hypertension, renal disease Psychiatric history: no psych history - Past Surgical History Surgical History: breast surgery, cancer surgery, cataract, cholecystectomy, hysterectomy, knee replacement - Social History Smoking Status: Former smoker Packs per day: 2/day [id number] Smokeless Tobacco Status: No Alcohol use: none Drug use: none Medications and Allergies Calcium Acetate [Phos-LO] 667 mg PO TIDWM 08/30/15 [History] Gabapentin [Neurontin] 300 mg PO BID 08/30/15 [History] Montelukast [Singulair] 10 mg PO DAILY 08/30/15 [History] Carvedilol [Coreg] 25 mg PO BID 03/10/17 [History] Cholecalciferol (Vitamin D3) [Vitamin D] 50,000 unit PO Q2W 03/10/17 [History] Hydralazine HCl 50 mg PO TID 03/10/17 [History] Insulin DETEMIR [Levemir] 35 unit SQ HS 03/10/17 [History] Simvastatin [Zocor] 20 mg PO HS 03/10/17 [History] Tizanidine HCl 2 mg PO BID PRN 03/10/17 [History] Tramadol HCl [Ultram] 50 mg PO Q6H PRN 03/10/17 [History] amLODIPine [Norvasc] 5 mg PO DAILY 03/10/17 [History] Cetirizine HCl [Zyrtec] 10 mg PO DAILY 10/08/17 [History] Fluconazole [Diflucan] 200 mg PO TUTHSA 10/08/17 [History] Fluocinonide [Fluocinonide] 1 - 2 gm TP AD 10/08/17 [History] Gemfibrozil [Lopid] 600 mg PO BIDWM 10/08/17 [History] Ipratropium/Albuterol Neb [Duoneb] 3 ml IH Q6HR PRN 10/08/17 [History] Levothyroxine [Synthroid] 25 mcg PO 0630 10/08/17 [History] Lidocaine 1 appl TP QID PRN 10/08/17 [History] Mag Hydrox/Al Hydrox/Simeth [Antacid Suspension] 30 ml PO QID PRN 10/08/17 [ History] Ondansetron HCl [Zofran] 4 mg PO Q8H PRN 10/08/17 [History] Oxycodone HCl 2.5 mg PO Q12H 10/08/17 [History] Pantoprazole Sodium [Protonix] 40 mg PO DAILY 10/08/17 [History] Ranitidine HCl [Zantac] 150 mg PO BID 10/08/17 [History] 3 Allergy/AdvReac Type Severity Reaction Status Date / Time adhesive tape AdvReac Rash Verified 03/10/17 09:54 aspirin AdvReac Nausea Verified 03/10/17 09:54 meperidine [From Demerol] AdvReac Dizziness Verified 03/10/17 09:54 propoxyphene AdvReac Nausea Verified 03/10/17 09:54 [From Darvocet-N] Sulfa (Sulfonamide AdvReac Hives Verified 03/10/17 09:54 Antibiotics) Review of Systems Constitutional: as per HPI Eyes: bilateral: blurred vision (patient denies), diplopia (patient denies) Nose, mouth and throat: neck pain, sore throat, no dizziness, no headache(s) Cardiovascular: dyspnea on exertion, edema Respiratory: dyspnea on exertion Gastrointestinal: no abdominal pain, no change in bowel habits Musculoskeletal: back pain, neck pain, no muscle weakness, no numbness Integumentary: unusual bruising, no hirsutism, no striae Neurological: as per HPI Psychiatric: no depression, no difficulty concentrating Exam - Vital Signs Vital signs: Initial Vital Signs Temp Pulse Resp BP Pulse Ox 97.9 F 71 18 169/78 100 10/08/17 13:27 10/08/17 13:27 10/08/17 13:27 10/08/17 13:27 10/08/17 13:27 Vital Signs - Last 8 Hours Temp Pulse Resp BP Pulse Ox 10/09/17 04:45 97.5 F L 62 16 112/72 91 10/09/17 00:13 98.2 F 57 16 115/70 93 Intake and Output 10/08/17 10/08/17 10/09/17 15:59 23:59 07:59 Intake Total 0 / 0 Balance 0 / 0 Intake: Oral 0 / 0 Other: # Voids 1 Weight 91.2 kg Blood Glucose* 75 89 Patient Weight 10/09/17 23:59 Weight 91.2 kg - General Appearance Exam: The patient is alert and oriented. She is in no acute distress. There is a tunnel dialysis catheter in the upper right chest. There is bruising around the catheter site the tunnel the neck and the upper back. The tunnel does not show any signs of inflammation. There is no obvious sign of infection. Lungs clear to auscultation. Heart regular rate and rhythm. Abdomen is benign. There is mild lower extremity swelling with evidence of venous stasis. Results - Lab Results 10/09/17 05:47 10/09/17 05:47 Most recent lab results Calcium 9.1 mg/dL (8.6-10.8) 10/09/17 05:47 Consult Discharge Plan - Plan Referrals: Andrzej Carolina MD [Primary Care Provider] -
[2017-10-09] MEDS ORDERED: 0.9 % Sodium Chloride 250 ML IVC PRN (07:51)
[2017-10-09] MEDS ORDERED: 0.9 % Sodium Chloride 1,000 ML ONE (08:45)
--- NOTE | 2017-10-09 11:45 | Internal Med Progress Note ---
Date of Encounter: 10/09/17 Time of Encounter: 11:00 - Assessment and plan (1) Right-sided chest wall pain Current Visit: Yes Status: Acute (2) Diabetes mellitus type 2, insulin dependent Current Visit: No Status: Chronic (3) Hyperlipidemia Current Visit: No Status: Chronic Qualifiers: Hyperlipidemia type: unspecified Qualified Code(s): E78.5 - Hyperlipidemia , unspecified (4) End stage renal disease Current Visit: No Status: Acute (5) Complications, dialysis, catheter, mechanical Current Visit: Yes Status: Acute Qualifiers: Encounter type: initial encounter Qualified Code(s): T82.49XA - Other complication of vascular dialysis catheter, initial encounter - Time Spent With Patient Add Lidoderm patch as C-spine and Flexeril as needed, try scheduled Tylenol, patient will have dialysis today. Awaiting nephrology ambulate if patient has successful dialysis and neck pain under good control possible discharge later today. No leukocytosis CT scan neck and x-ray are negative 25 - 35 minutes - Subjective Interval history: Patient continued to complain of right-sided neck pain, she could not tolerate dialysis yesterday. Patient denies any fever or chills. CT scan neck as well as chest x-ray negative, patient denies any nausea vomiting, denies any chest pain or shortness of breath - Constitutional Vitals: Temp Pulse Resp BP Pulse Ox 97.9 F 61 20 119/51 90 10/09/17 11:20 10/09/17 11:20 10/09/17 11:20 10/09/17 11:20 10/09/17 11:20 General appearance: Present: A&O X 3, no acute distress - Head Head exam: Present: atraumatic, normocephalic (Tenderness right paraspinal area right shoulder area right side of the neck no area of infection or cellulitis) - Extremities Exam Extremities exam: Present: warm, radial pulses palpable and symmetrical. Absent : calf tenderness, cyanotic, pedal edema Internal Medicine: Result - Labs CBC & Chem 7: 10/09/17 05:47 10/09/17 05:47 Labs: Short CBC 10/09/17 Range/Units 05:47 WBC 4.6 (4.3-11.1) K/mcL Hgb 10.4 L (11.5-15.4) g/dL Hct 37.2 (35.3-44.9) % Plt Count 109 L (140-400) K/mcL Neutrophils # 3.2 (1.6-8.9) K/mcL BMP 10/09/17 05:47 Sodium 141 Potassium 4.3 Chloride 105 Carbon Dioxide 26 BUN 24 H Creatinine 3.92 H Glucose 89 Calcium 9.1 - ABG Interpretation ABG results: PT/INR, D-dimer PT 12.1 Seconds (9.4-12.1) 10/09/17 05:47 Consult Discharge Plan - Plan Referrals: Andrzej Carolina MD [Primary Care Provider] -
[2017-10-09] MEDS: Calcium Acetate 667 MG CAPSULE PO SCH ×2 (12:27→18:17)
[2017-10-09] MEDS: Famotidine 20 MG TABLET PO SCH (12:27)
[2017-10-09] MEDS: *HR* OxyCODONE Immed Rel 5 MG TABLET PO SCH ×2 (13:09→20:00)
[2017-10-09] MEDS: Loratadine 10 MG TABLET PO SCH (13:10)
[2017-10-09] MEDS: Gabapentin 300 MG CAPSULE PO SCH (13:10)
[2017-10-09 15:10] LABS: Hepatitis B Surface Antigen Nonreactive (Nonreactive)
[2017-10-09] MEDS ORDERED: Fluconazole 100 MG TABLET PO SCH (18:00)
[2017-10-09] MEDS: hydrALAZINE 25 MG TABLET PO SCH ×2 (18:17→20:01)
[2017-10-09] MEDS: amLODIPine 5 MG TABLET PO SCH (18:17)
[2017-10-09] MEDS: 0.9 % Sodium Chloride 500 ML IVC SCH (20:11)
[2017-10-10] MEDS: Insulin LISPRO 300 UNITS/3 ML VIAL SQ SCH ×3 (00:38→12:04)
[2017-10-10] MEDS: Insulin DETEMIR 100 UNIT/ML X5UNITS SQ SCH (00:38)
[2017-10-10] MEDS: Levothyroxine 25 MCG TABLET PO SCH (06:53)
[2017-10-10] MEDS ORDERED: Famotidine 20 MG TABLET PO SCH (07:30)
--- NOTE | 2017-10-10 07:42 | Nephrology Progress Note ---
Date of Encounter: 10/10/17 Time of Encounter: 07:41 - Assessment and Plan (1) End stage renal disease Current Visit: No Status: Acute Patient is stable from a renal perspective. She has postprocedural discomfort related to recent tunnel dialysis catheter insertion. The catheter functions well. She is able to tolerate dialysis. From a renal perspective the patient can be discharged home. (2) Complications, dialysis, catheter, mechanical Current Visit: Yes Status: Acute Qualifiers: Encounter type: initial encounter Qualified Code(s): T82.49XA - Other complication of vascular dialysis catheter, initial encounter Subjective Interval history: The patient reports she continues to have some discomfort around the catheter insertion site as well as her neck. However she did well with dialysis yesterday. She is stable from a renal perspective. Objective - Vital Signs Vital signs: Vital Signs Temp Pulse Resp BP Pulse Ox 10/10/17 07:03 98.2 F 62 16 145/70 98 10/10/17 03:22 97.7 F 64 16 132/67 98 10/09/17 23:27 97.8 F 61 16 145/71 96 10/09/17 19:02 97.8 F 66 16 144/75 93 10/09/17 16:45 98.8 F 18 135/59 10/09/17 16:30 115/50 10/09/17 16:15 108/53 10/09/17 16:00 101/53 10/09/17 15:45 123/53 10/09/17 15:30 121/54 10/09/17 15:15 122/56 10/09/17 15:01 108/53 10/09/17 15:00 138/57 10/09/17 14:45 145/55 10/09/17 14:30 128/65 10/09/17 14:15 129/61 10/09/17 14:00 136/56 10/09/17 13:45 163/71 10/09/17 13:30 97.8 F 18 145/58 10/09/17 11:20 97.9 F 61 20 119/51 90 Intake and Output 10/09/17 10/09/17 10/10/17 15:59 23:59 07:59 Intake Total 600 / 600 0 / 0 Output Total 2600 / 2600 Balance 600 / 600 -2600 / -2600 Intake: Oral 0 / 0 0 / 0 Intake, Rinseback and Flushes 600 / 600 Output: Urine 0 / 0 Total Dialysis (HD) Output 2600 / 2600 Other: Meal Dinner Percent of Meal Consumed 0% # Voids 1 Weight 93.2 kg Blood Glucose* 125 117 115 Hemodialysis Net Fluid Removed 1949 1999 (mL) Patient Weight 10/10/17 23:59 Weight 93.2 kg - General Appearance Exam: Patient is alert and oriented. She is in no acute distress. Lungs clear to auscultation. Heart regular rate and rhythm. Abdomen is benign. There is mild lower extremity swelling. There is ecchymosis around the catheter insertion site as well as her neck and upper back. - Lab 10/09/17 05:47 10/09/17 05:47 Most recent lab results Calcium 9.1 mg/dL (8.6-10.8) 10/09/17 05:47 Consult Discharge Plan - Plan Referrals: Andrzej Carolina MD [Primary Care Provider] -
[2017-10-10] MEDS: Calcium Acetate 667 MG CAPSULE PO SCH ×2 (09:00→12:04)
--- NOTE | 2017-10-10 09:44 | Discharge Summary ---
Date of Encounter: 10/10/17 Time of Encounter: 09:46 - Discharge Diagnosis (1) Right-sided chest wall pain Priority: Primary Status: Acute (2) Diabetes mellitus type 2, insulin dependent Priority: Secondary Status: Chronic (3) Hyperlipidemia Priority: Secondary Status: Chronic Qualifiers: Hyperlipidemia type: unspecified Qualified Code(s): E78.5 - Hyperlipidemia , unspecified (4) End stage renal disease Priority: Secondary Status: Acute (5) Complications, dialysis, catheter, mechanical Priority: Primary Status: Acute Qualifiers: Encounter type: initial encounter Qualified Code(s): T82.49XA - Other complication of vascular dialysis catheter, initial encounter - Discharge Medications Prescriptions: Cyanocobalamin (B-12) [Vitamin B12] 1,000 mcg PO DAILY 90 Days #90 tablet Ergocalciferol (VITAMIN D2) [Drisdol (50,000 Unit)] 50,000 unit PO QWEEK #15 capsule Thiamine HCl 250 mg PO DAILY #90 tablet Home Medications: Calcium Acetate [Phos-LO] 667 mg PO TIDWM 08/30/15 [History] Gabapentin [Neurontin] 300 mg PO BID 08/30/15 [History] Montelukast [Singulair] 10 mg PO HS 08/30/15 [History] Carvedilol [Coreg] 25 mg PO BID 03/10/17 [History] Cholecalciferol (Vitamin D3) [Vitamin D3] 50,000 unit PO Q2W 03/10/17 [History] Hydralazine HCl 50 mg PO TID 03/10/17 [History] Insulin DETEMIR [Levemir] 35 unit SQ HS 03/10/17 [History] Simvastatin [Zocor] 20 mg PO HS 03/10/17 [History] Tizanidine HCl 2 mg PO BID PRN 03/10/17 [History] Tramadol HCl [Ultram] 50 mg PO Q6H PRN 03/10/17 [History] amLODIPine [Norvasc] 5 mg PO DAILY 03/10/17 [History] Cetirizine HCl [Zyrtec] 10 mg PO DAILY 10/08/17 [History] Fluconazole [Diflucan] 200 mg PO TUTHSA 10/08/17 [History] Fluocinonide 1 - 2 gm TP AD 10/08/17 [History] Gemfibrozil [Lopid] 600 mg PO BIDWM 10/08/17 [History] Ipratropium/Albuterol Neb [Duoneb] 3 ml IH Q6HR PRN 10/08/17 [History] Levothyroxine [Synthroid] 25 mcg PO 0630 10/08/17 [History] Lidocaine 1 appl TP QID PRN 10/08/17 [History] Mag Hydrox/Al Hydrox/Simeth [Antacid Suspension] 30 ml PO QID PRN 10/08/17 [ History] Ondansetron HCl [Zofran] 4 mg PO Q8H PRN 10/08/17 [History] Oxycodone HCl 2.5 mg PO Q12H 10/08/17 [History] Pantoprazole Sodium [Protonix] 40 mg PO DAILY 10/08/17 [History] Ranitidine HCl [Zantac] 150 mg PO BID 10/08/17 [History] Cyanocobalamin (B-12) [Vitamin B12] 1,000 mcg PO DAILY 90 Days #90 tablet [Rx] Ergocalciferol (VITAMIN D2) [Drisdol (50,000 Unit)] 50,000 unit PO QWEEK #15 capsule 10/10/17 [Rx] Insulin DETEMIR [Levemir] 35 unit SQ HS [id number] 10/10/17 [Rx] Insulin LISPRO [HumaLOG] 0 units SQ Q6HR vial 10/10/17 [Rx] Thiamine HCl 250 mg PO DAILY #90 tablet 10/10/17 [Rx] Allergies/Adverse Reactions: 3 Allergy/AdvReac Type Severity Reaction Status Date / Time adhesive tape AdvReac Rash Verified 03/10/17 09:54 aspirin AdvReac Nausea Verified 03/10/17 09:54 meperidine [From Demerol] AdvReac Dizziness Verified 03/10/17 09:54 propoxyphene AdvReac Nausea Verified 03/10/17 09:54 [From Darvocet-N] Sulfa (Sulfonamide AdvReac Hives Verified 03/10/17 09:54 Antibiotics) Date of admission: 10/08/17 17:45 Primary care physician: Andrzej Carolina MD Consults: 10/08/17 19:52 Consult to Physician [CONS] Routine Consulting Provider: Marty Cadena Reason for Consult: Blocked dialysis catheter Call Completed: Yes 10/08/17 20:11 Consult to Nutrition [CONS] Routine Comment: Consulting Provider: NUTRITION Reason for Dietary Consult: MST Score 10/09/17 08:00 Consult to Dialysis [CONS] ONCE Discharging clinician: Toby Tony Anticipated date of discharge: 10/11/17 - Patient Status Disposition: Home, Self-Care Condition: Fair Functional capacity at discharge: independent ambulation Overall status at discharge: patient is progressing back to baseline - Discharge Instructions Follow Up With: Andrzej Carolina MD [Primary Care Provider] - Additional Instructions: follow-up with music theory professor in 1 week - Diet and Activity Diet: diabetic diet, low fat, low cholesterol (Renal diet ) Hospital course: Ms. Bardales is a 72 year old female with past medical history significant for hypertension, end-stage renal disease, COPD, CHF,CAD presented to the emergency department sent from her dialysis center due to pain at catheter site. She had hemodialysis catheter placed 10 days ago,She did not receive dialysis on the day of admission because of increased pain at her catheter site as well as her neck when she was placed on the machine. The CT scan as well as chest x-ray does not show any obvious complications related to the catheter or soft tissues. Nephrology was consulted he stated most of her discomfort is simply related to the bruising that is postprocedural. Patient received pain medication in addition to Lidoderm patch, muscle relaxant. Patient had dialysis done successfully. Pain was under good control. Patient discharged home in stable condition based on nephrology recommendation. Patient denies any chest pain or shortness of breath no nausea no vomiting - Time Spent with Patient Total time spent providing and/or coordinating discharge services: - Constitutional Vitals: Temp Pulse Resp BP Pulse Ox 98.2 F 62 16 145/70 98 10/10/17 07:03 10/10/17 07:03 10/10/17 07:03 10/10/17 07:03 10/10/17 07:03 General appearance: Present: A&O X 3, no acute distress - Head Head exam: Present: atraumatic, normocephalic - Neck Neck exam general surgery: Present: supple, trachea midline. Absent: lymphadenopathy Additional comments: Right paraspinal muscle tenderness, no evidence of cellulitis - Respiratory Respiratory exam: Present: decreased breath sounds, prolonged expiratory phase. Absent: accessory muscle use, rales, rhonchi, wheezes - GI/Abdominal GI/Abdominal exam: Present: normal bowel sounds, soft, no peritoneal signs. Absent: distended, tenderness - Extremities Exam Extremities exam: Present: warm, radial pulses palpable and symmetrical. Absent : calf tenderness, cyanotic, pedal edema
[2017-10-10 11:51] VITALS: BP 99/50
[2017-10-10] MEDS: *HR* OxyCODONE Immed Rel 5 MG TABLET PO SCH (12:05)
[2017-10-10] MEDS: Gabapentin 300 MG CAPSULE PO SCH (12:06)
[2017-10-10] MEDS: Loratadine 10 MG TABLET PO SCH (12:06)
[2017-10-10] MEDS: amLODIPine 5 MG TABLET PO SCH (12:06)
[2017-10-10] MEDS: hydrALAZINE 25 MG TABLET PO SCH (12:07)
[2017-10-11 09:49] LABS: Hepatitis B Surface Antibody 0.34 mIU/mL
--- NOTE | 2017-10-11 10:11 | Electrocardiograph Report ---
[address] [address] Test Date: 2017-10-08 Pat Name: Louann Bardalse Department: 104 Room: 2A Gender: F Tool Specialist: : [id number] Requested By: Memo Rivers Order Number: [id number] Reading MD: Prince Rodarte MD Measurements Intervals [place] Rate: 66 P: 72 W[place]: 256 QRS: -39 QRSD: 105 T: 61 QT: 408 QTc: 421 Interpretive Statements SINUS RHYTHM WITH SINUS ARRHYTHMIA WITH FIRST DEGREE AV BLOCK MARKED LEFT AXIS DEVIATION LOW QRS VOLTAGE IN PRECORDIAL LEADS INCOMPLETE RIGHT BUNDLE BRANCH BLOCK Poor R wave progression Electronically Signed On 10-11-2017 10:09:54 EST by Prince Rodarte MD
== END 2017-10-10 15:16 | disposition home or self-care (01) ==
LOC: 2ANU 13:25 → EMEROO 13:25 → 2ANU 18:11
PROVIDERS: ADMIT Internal Medicine; ATTEND Student in an Organized Health Care Education/Training Program

== ENCOUNTER 2020-06-07 10:27 | Observation (INO) ==
[2020-06-07 11:45] LABS: Mean Corpuscular Volume 97.9 fL (83.0-100.0)
[2020-06-07 11:48] LABS: Basophils % 0.3 %; Eosinophils # 0.1 K/mcL (0.0-0.6); Eosinophils % 0.9 %; Hematocrit 46.8 % (35.3-44.9); Hemoglobin 13.6 g/dL (11.5-15.4); Immature Granulocytes % 0.4 % (0-4); Immature Platelets 15.9 % (1.1-6.1); Lymphocytes # 1.1 K/mcL (0.6-4.6); Lymphocytes % 15.9 %; Mean Corpuscular HGB Conc 29.1 g/dL (31.6-35.5); Mean Corpuscular Hemoglobin 28.5 pg (28.0-33.3); Mean Platelet Volume 13.2 fL (9.4-12.4); Monocytes # 0.6 K/mcL (0.0-1.3); Monocytes % 7.8 %; Platelet Count 101 K/mcL (140-400); Red Blood Count 4.78 M/mcL (3.82-4.97); Red Cell Distribution Width 16.1 % (11.5-14.5); Segmented Neutrophils % 74.7 %
[2020-06-07 11:50] LABS: Neutrophils # 5.2 K/mcL (1.6-8.9)
[2020-06-07 12:06] LABS: Bilirubin,Urine Negative (Negative); Blood,Urine Large (Negative); Clarity,Urine Ex.Turbid (Clear); Color,Urine Orange (Yellow); Glucose,Urine (UA) Normal (Normal); Ketones,Urine Negative (Negative); Leukocyte Esterase,Urine Large (Negative); Nitrite,Urine Negative (Negative); PH,Urine 6.5 pH Units (5.0-8.0); Protein,Urine >=300 mg/dL (Neg-Trace); Urobilinogen,Urine Normal (Normal)
[2020-06-07 12:08] LABS: Amorphous Sediment,Urine Present per hpf (None-Few); Bacteria,Urine Present per hpf (None-Few); RBC,Urine Present per hpf (0-3); Squamous Epithelial Cell,Urine Present per hpf (None-Few); WBC,Urine TNTC per hpf (0-3)
[2020-06-07] MEDS ORDERED: cefTRIAXone 1,000 MG in Water for inj. (sterile) 10 ML IVP ONE (12:11)
[2020-06-07 12:16] LABS: Troponin I 0.09 ng/mL (< 0.04)
[2020-06-07 12:18] LABS: Albumin 3.8 g/dL (3.5-5.7); Albumin/Globulin Ratio 1.4 (1.1-2.2); Bilirubin,Total 0.7 mg/dL (0.3-1.0); Calcium 9.9 mg/dL (8.6-10.3); Globulin 2.8 g/dL (2.4-3.5); Potassium 3.1 mEq/L (3.5-5.1); Total Protein 6.6 g/dL (6.4-8.9)
[2020-06-07] MEDS ORDERED: Naloxone 0.4 MG/ML INJ IVP PRN (12:42)
[2020-06-07] MEDS ORDERED: Aspirin 325 MG TABLET PO ONE (13:51)
[2020-06-07] MEDS ORDERED: Heparin 1,000 UNITS/500 mL 500 ML ONE (14:16)
[2020-06-07] MEDS ORDERED: *HR* Heparin 5,000 UNIT/ML VIAL ONE (14:33)
[2020-06-07] MEDS ORDERED: Dextrose Gel 15 GM/37.5 ML TUBE PO PRN ×2 (14:42)
[2020-06-07] MEDS ORDERED: *HR* Dextrose 50 % in Water (Vial) 50 ML VIAL IVP PRN (14:42)
[2020-06-07] MEDS ORDERED: D5% in Water 1,000 ML IVC PRN (14:42)
[2020-06-07 14:49] LABS: INR 18.7; Prothrombin Time 213.1 Seconds (9.4-12.1)
[2020-06-07] MEDS ORDERED: *HR* Phytonadione 10 MG/ML AMPUL SQ ONE ×2 (14:53)
[2020-06-07] MEDS ORDERED: Piperacillin/Tazobactam 3.375 GM in 0.9 % Sodium Chloride Mini Bag 100 ML IVPB SCH (15:00)
[2020-06-07] MEDS ORDERED: Vancomycin 1,250 MG/262.5 ML IV.SOLN IVPB ONE (15:00)
[2020-06-07 15:03] LABS: Hepatitis B Surface Antibody < 3.10 mIU/mL
[2020-06-07 15:12] LABS: Hepatitis B Surface Antigen Nonreactive (Nonreactive)
[2020-06-07] MEDS: Insulin LISPRO 300 UNITS/3 ML VIAL SQ SCH ×2 (15:26→15:55)
[2020-06-07] MEDS: *HR* HYDROcodone/Acet 5/325 mg TABLET PO PRN ×2 (15:48→21:22)
[2020-06-07] MEDS ORDERED: [UNRECOGNIZED DRUG - OTHER] IVPB ONE (16:01)
[2020-06-07] MEDS ORDERED: WATER FOR INJ IVPB ONE (16:01)
[2020-06-07] MEDS ORDERED: HUM PROTHROMBIN CPLX IVPB ONE (16:01)
[2020-06-07 20:57] VITALS: BP 91/66
[2020-06-07] MEDS ORDERED: Insulin LISPRO 300 UNITS/3 ML VIAL SQ SCH (21:00)
[2020-06-07] MEDS ORDERED: Aminoglycoside Consult 1 EACH MC ONE (21:57)
== END 2020-06-07 21:58 | disposition short-term general hospital (02) ==
LOC: EMEROOARM 10:27 → 2ANU 10:27
PROVIDERS: ADMIT Internal Medicine; ATTEND Internal Medicine
PROC: IRPERMA (2020-06-07 13:00)